=== PATIENT | female | born 1940 | race Caucasian/White ===

== ENCOUNTER 2016-08-14 09:50 | Inpatient (IN) ==
[2016-08-14] MEDS ORDERED: ASPIRIN PO STA (12:05)
[2016-08-14] MEDS ORDERED: OXY IR PO ONE (12:08)
[2016-08-14] MEDS ORDERED: NORCO-10 PO ONE (12:47)
[2016-08-14 13:03] LABS: MANUAL DIFF NEEDED? NO
[2016-08-14 13:19] LABS: BASO% 1.1 % (0.0-0.8); EOS# 0.12 X1000 (0.0-0.7); EOS% 1.6 % (0.0-10.0); HEMATOCRIT 32.1 % (37.0-47.0); IMM GRAN# 0.03 X1000 (0.0-0.04); IMM GRAN% 0.4 % (0.0-0.5); LYMPH# 1.16 X1000 (1.2-3.4); LYMPH% 15.5 % (20.5-51.1); MCH 25.3 PG (27-31); MCHC 31.2 g/dL (33-37); MCV 81.1 FL (81-99); MONO# 0.73 X1000 (0.11-0.59); MONO% 9.8 % (1.7-9.3); MPV 9.2 FL (7.4-10.4); NEUT% 71.6 % (42.2-75.2); PLT 557 X1000 (130-400); RBC 3.96 XMIL (4.2-5.4)
[2016-08-14 13:29] LABS: INR 1.1; PROTIME 11.6 Seconds (9.2-11.7); PTT 35.7 Seconds (22.0-36.0)
[2016-08-14 13:46] LABS: ALBUMIN 2.7 g/dL (3.5-5.0); CALCIUM 8.8 mg/dL (8.8-10.2); MAGNESIUM 2.1 mg/dL (1.5-2.7); POTASSIUM 3.9 mmol/L (3.5-5.1); TOTAL BILIRUBIN 0.37 mg/dL (0.20-1.00); TOTAL PROTEIN 6.3 g/dL (6.3-8.3)
[2016-08-14] MEDS ORDERED: LASIX IV ONE (14:43)
--- NOTE | 2016-08-14 14:50 | PROVIDER DOCUMENTATION ---
This chart was entered by Tamara Lui Scribe, acting as scribe for Samy Quintero MD. HPI-Musculoskeletal Pain/Inj - GENERAL Chief Complaint: Edema Stated Complaint: sent from outpatient surgery Time Seen by Provider: 08/14/16 10:27 Source: patient - HX OF PRESENT ILLNESS-MUSKULOSKELTAL Nature of Presenting Problem: Pt is a 75 yof who came to the ED with a cc of edema. R leg is swollen two times more than the left leg. Pt was endoscopy but was canceled because the condition her right leg is in. Quality of Pain: reports: cramping Onset/Duration: unsure Timing: still present Any recent injury?: No Similar Symptoms Previously?: Yes Recently seen or treated by another doctor?: Yes Review of Systems - Adult - REVIEW OF SYSTEMS - ADULT Constitutional: denies: chills, fever Eyes: reports: no symptoms reported Ears, Nose, Mouth & Throat: denies: epistaxis, mouth swelling Cardiovascular: reports: no symptoms reported Respiratory: reports: no symptoms reported Gastrointestinal: reports: no symptoms reported Genitourinary: reports: no symptoms reported Musculoskeletal: reports: see HPI, other (lower legs swollen). denies: frequent leg cramps, joint swelling Integumentary: reports: no symptoms reported Neurological: reports: no symptoms reported Psychiatric: reports: no symptoms reported Endocrine: reports: no symptoms reported Hematologic/Lymphatic: reports: no symptoms reported Allergic/Immunologic: reports: no symptoms reported All Other Systems: Reviewed and Negative Past History - Adult - PAST MEDICAL HISTORY-ADULT Review of Records: reports: Nursing Assessment Review Major Childhood Illnesses: reports: denies history Cardiovascular: reports: HTN Respiratory: reports: asthma Gastrointestinal: reports: GERD Obstetrical/Gynecological: reports: denies history Genitourinary: reports: denies history Musculoskeletal: reports: neck/back injury, chronic pain, arthritis Neurological: reports: denies history Endocrine/Immune: reports: denies history Other Conditions: reports: cataract/glaucoma - PRIOR SURGERIES/PROCEDURES Surgical/Procedure History: reports: appendectomy, cholecystectomy, hysterectomy , tonsillectomy, hernia repair, orthopedic (extremity), other - PRIOR HOSPITALIZATIONS Prior Hospitalizations: reports: for other non-related - IMMUNIZATION STATUS Childhood Immunizations: See Nurse Assessment Flu Vaccine: See Nurse Assessment - FAMILY HISTORY Family History: reviewed, not pertinent Physical Exam-Injury Related - Physical Exam-Injury Related General Appearance: appears well, alert Eyes: PERRL/EOMI, pink conjunctivae Head, Ears, Nose, Mouth & Throat: normocephalic/atraumatic, moist mucous membranes Neck: non-tender, full range of motion Respiratory: chest non-tender, lungs clear, normal breath sounds Cardiovascular: normal peripheral pulses, regular rate, rhythm Abdominal Exam: normal bowel sounds, non tender, soft Back Exam: normal inspection, no CVA tenderness Extremity: pedal edema Integumentary: normal color, warm/dry Neurologic: grossly normal Psych/Mental Status: normal mood/affect, normal thought content, normal thought process, oriented x 3 Progress - PLAN OF CARE/RESULTS Progress/Plan/Lab Results: Vital Signs - 8 hr 08/14/16 09:50 08/14/16 12:05 Temperature 97.8 F Pulse Rate 91 H 94 H Respiratory Rate 18 Blood Pressure 169/83 O2 Sat by Pulse Oximetry 100 92 L Laboratory Results - last 24 hr 08/14/16 08/14/16 08/14/16 12:35 12:35 12:35 WBC 7.48 RBC 3.96 L Hgb 10.0 L Hct 32.1 L MCV 81.1 MCH 25.3 L MCHC 31.2 L RDW Std Deviation 14.0 Plt Count 557 H MPV 9.2 Immature Gran % (Auto) 0.4 Neut % (Auto) 71.6 Lymph % (Auto) 15.5 L Door % (Auto) 9.8 H Eos % (Auto) 1.6 Baso % (Auto) 1.1 H Immature Gran # (Auto) 0.03 Neut # (Auto) 5.36 Lymph # (Auto) 1.16 L Door # (Auto) 0.73 H Eos # (Auto) 0.12 Baso # (Auto) 0.08 PT INR PTT (Actin FS) D-Dimer 1.43 H Sodium 143 Potassium 3.9 Chloride 102 Carbon Dioxide 24 L Anion Gap 17 BUN 55 H Creatinine 1.1 H Estimated GFR/1.73 m2 49 BUN/Creatinine Ratio 50 Glucose 94 Calculated Osmolality 300 Calcium 8.8 Magnesium 2.1 Total Bilirubin 0.37 AST 16 ALT 7 L Alkaline Phosphatase 134 H Creatine Kinase 24 Troponin T Pna-Y-Okbkpikytsc Pept Total Protein 6.3 Albumin 2.7 L Globulin 3.6 Albumin/Globulin Ratio 0.8 04/18/17 04/18/17 04/18/17 12:35 12:35 12:35 WBC RBC Hgb Hct MCV MCH MCHC RDW Std Deviation Plt Count MPV Immature Gran % (Auto) Neut % (Auto) Lymph % (Auto) Door % (Auto) Eos % (Auto) Baso % (Auto) Immature Gran # (Auto) Neut # (Auto) Lymph # (Auto) Door # (Auto) Eos # (Auto) Baso # (Auto) PT 11.6 INR 1.10 PTT (Actin FS) 35.7 D-Dimer Sodium Potassium Chloride Carbon Dioxide Anion Gap BUN Creatinine Estimated GFR/1.73 m2 BUN/Creatinine Ratio Glucose Calculated Osmolality Calcium Magnesium Total Bilirubin AST ALT Alkaline Phosphatase Creatine Kinase Troponin T < 0.010 Jgd-D-Rsusgorzzit Pept 600 H Total Protein Albumin Globulin Albumin/Globulin Ratio Orders Category Date Time Status Cardiac Monitoring DIRECTED Care 08/14/16 12:05 Active Elevate affected extremity DIRECTED Care 08/14/16 12:04 Active Ice Pack to affected area DIRECTED Care 08/14/16 12:04 Active Immobilize affected extremity ORDERED Care 08/14/16 12:04 Active Saline Loc NOW Care 08/14/16 12:05 Active Heart Healthy Diet Diet 08/14/16 13:45 Active BLOOD CULTURE [BLDCUL] Stat Lab 08/14/16 13:40 Results CBC WITH ELECTRONIC DIFF [HEME] Stat Lab 08/14/16 12:35 Completed CK PROFILE [SP CHEM] Stat Lab 08/14/16 12:35 Completed COMPREHENSIVE METABOLIC PANEL [CHEM] Stat Lab 08/14/16 12:35 Completed D-DIMER [CHEM] Stat Lab 08/14/16 12:35 Completed MAGNESIUM [CHEM] Stat Lab 08/14/16 12:35 Completed PRO B-NATRIURETIC PEPTIDE Stat Lab 08/14/16 12:35 Completed PROTIME WITH INR [COAG] Stat Lab 08/14/16 12:35 Completed PTT [COAG] Stat Lab 08/14/16 12:35 Completed TROPONIN T Stat Lab 08/14/16 12:35 Completed Aspirin Med 08/14/16 12:05 Discontinued 325 mg PO STAT STA Furosemide [Lasix] Med 08/14/16 14:43 Discontinued 80 mg IV NOW ONE Hydrocodone/APAP 10 mg/325 mg [[place]-10] Med 08/14/16 12:47 Discontinued 1 each PO NOW ONE Oxycodone I.r. [Oxy Ir] Med 08/14/16 12:08 Discontinued 5 mg PO NOW ONE EKG [EKG] Stat Ther 08/14/16 12:05 Ordered US [Venous U/S Left Leg] Stat Ther 08/14/16 12:06 Completed Result Diagrams: 08/14/16 12:35 08/14/16 12:35 - REASSESSMENT Reassessment #1 Time Reassessed: 14:44 Reassessment Comment: labs unremarkable. u/s unremarkable. no evidence of systemic infection Departure - Departure Time of Disposition Decision: 14:45 DIAGNOSIS: Cellulitis, Lymphedema of both lower extremities Disposition: HOME 01 Certified Medical Emergency: Emergent Condition: Stable Prescriptions: Sulfamethoxazole/Trimethoprim [Bactrim Ds Tablet] 1 each PO BID #14 tablet Referrals and Follow-Ups: Jeannine Curran MD [Primary Care Provider] - Attestation - Physician/ HERMES Attestation Patient care was provided by Advanced Practice Provider:: Yes Advanced Practice Provider documentation review:: The Mid-level provider documentation, treatment plan and medical decision making was reviewed by the physician who agrees with all treatment and medical decision making by the MLP. The physician spent face to face time with patient:: Yes Advanced Practice Provider documentation review:: The physician spent face to face time with this patient and agrees with all P documentation, treatment, and medical decision making by the MLP. See provider notes for further information. This chart was documented by the indicated scribe, (Tamara Lui Scribe) and accurately reflects the services I performed and decisions made by , Samy Quintero MD, as attested by the provider's signature.
[2016-08-14] MEDS ORDERED: SEPTRA DS PO ONE (14:51)
[2016-08-14 18:05] LABS: ALBUMIN 2.7 g/dL (3.5-5.0); CALCIUM 8.6 mg/dL (8.8-10.2); POTASSIUM 3.9 mmol/L (3.5-5.1); TOTAL BILIRUBIN 0.27 mg/dL (0.20-1.00); TOTAL PROTEIN 6.2 g/dL (6.3-8.3)
[2016-08-14] MEDS ORDERED: NS 1,000 ML IV ONE (18:27)
[2016-08-14] MEDS ORDERED: VANCOMYCIN IV PER PHARMACY MISC SCH (18:30)
[2016-08-14 18:48] LABS: RETIC% 0.69 % (0.8-2.1); RETIC-HE 27.8 PG (28.2-36.6)
[2016-08-14 18:52] LABS: ALLEN TEST YES; BE 4.2 mmoll (-3.0-3.0); BLOOD TYPE ARTERIAL; DRAW SITE R RADIAL; METHB 1.6 % (0.0-1.5); MODALITY CANNULA; O2(CT) 13.7 mL/dL (15.0-23.0); PCO2(98.6) 45 mmHg (35-45); PO2(98.6) 99 mmHg (60-100); SAMPLE BLOOD; SAO2 99.2 % (95.0-100.0); pH(98.6) 7.42 (7.35-7.45)
[2016-08-14] MEDS ORDERED: MERREM 500 MG in NS 50 ML IV ONE (19:00)
[2016-08-14 19:08] LABS: HEMOGLOBIN A1C 5.3 % (4.8-6.0)
[2016-08-14 19:13] LABS: URINE MICRO REVIEW NEEDED? NO; URINE SOURCE CATH
[2016-08-14 19:17] LABS: BILIRUBIN URINE NEGATIVE (NEGATIVE); BLOOD URINE NEGATIVE (NEGATIVE); COLOR STRAW; GLUCOSE URINE NEGATIVE (NEGATIVE); LEUKOCYTES URINE NEGATIVE (NEGATIVE); NITRITE URINE NEGATIVE (NEGATIVE); PROTEIN URINE NEGATIVE (NEGATIVE); SP GRAVITY URINE 1.006; TURBIDITY URINE CLEAR (CLEAR); UR EPITHELIAL CELLS <10 /HPF (<10); URINE BACTERIA NEGATIVE /HPF; URINE RBC <10 /HPF (<10); URINE WBC <10 /HPF (<10); UROBILINOGEN URINE NORMAL (NORMAL)
[2016-08-14 19:30] LABS: UR CREAT RANDOM 10.1 mg/dL (11-20); UR PROT RANDOM < 4.0 mg/dL; UR SODIUM 122 mmoll; UR UREA NITROGEN RANDOM 201 mg/dL
[2016-08-14] MEDS: DUONEB (A & A) INH SCH ×2 (19:30→23:30)
[2016-08-14] MEDS ORDERED: NORCO-5 PO PRN (20:52)
[2016-08-14] MEDS ORDERED: ASPIRIN EC PO ONE (20:54)
[2016-08-14] MEDS ORDERED: VANCOMYCIN 1.2 GM in NS 250 ML IV ONE (21:00)
[2016-08-14 21:05] LABS: FREE T4 1.33 ng/dL (0.93-1.70)
--- NOTE | 2016-08-14 21:33 | HISTORY AND PHYSICAL ---
PRIMARY CARE PHYSICIAN: Jeannine Curran MD. SHADING PAINTER: Oksana Osborn MD CHIEF COMPLAINT: "My left leg is a swollen and red and it hurts." HISTORY OF PRESENT ILLNESS: Ms. Dhaliwal is a 75-year-old female with a history of multiple medical problems, including hypertension, nephrolithiasis, restless legs syndrome, and dysphagia who was sent to the ER due to swelling in her left lower extremity and concern for cellulitis. The patient was scheduled to undergo outpatient endoscopy; however, prior to the procedure during the preop the patient's the patient was noted to have a erythema, swelling and pain involving her left lower extremity. The patient reports that for the last 2 weeks she has noticed that her left leg has been swelling more than normal. The patient has had multiple surgeries on the left leg and has chronic lymphedema; however, she states that the length felt warm and she has been having fever and chills for the last week or so. She also reports feeling very tired and a poor appetite. The patient also reports having difficulty with swallowing. The patient did have a modified barium swallow done on August 02 that revealed an upper esophageal web as well as esophagogastric achalasia. The patient was scheduled to undergo an EGD with possible dilation. In the ER, it was noted that the patient's BUN and creatinine were elevated at 55 and 1.1 respectively. The patient was also noted to be dehydrated. The patient reports that she can barely stand due to the pain in her left leg. A left lower extremity venous Doppler was done and the preliminary report was negative for DVT. The patient reports that her last bowel movement was yesterday. The patient states that she is not on home oxygen. PAST MEDICAL HISTORY: 1. Colonic polyps. 2. Large hiatal hernia. 3. Restless legs syndrome. 4. Nephrolithiasis. 5. GERD. 6. Esophageal web. 7. Asthma. 8. Fibromyalgia. 9. Hypertension. 10. Migraines. 11. Depression. 12. Morbid obesity. 13. Chronic left lower extremity lymphedema. PAST SURGICAL HISTORY: 1. Left wrist surgery for carpal tunnel syndrome. 2. Appendectomy. 3. Cholecystectomy. 4. Polypectomy. 5. Peter-en-Y gastric bypass in 2003. 6. Hysterectomy. 7. Hip replacement. 8. Knee replacement. 9. Vein stripping. FAMILY HISTORY: Noncontributory due to age. SOCIAL HISTORY: The patient is a . She denies any tobacco, alcohol or illicit drug use. ALLERGIES: 1. Cefazolin. 2. Clindamycin. 3. Indomethacin. 4. Clonidine. 5. Penicillin. 6. Adhesive tape. HOME MEDICATIONS: 1. Ambien 10 mg p.o. at bedtime. 2. Carafate 1 g p.o. 4 times a day. 3. Mirapex 0.25 mg p.o. at bedtime. 4. Klor-Con 20 mEq oral daily. 5. Protonix 40 mg p.o. daily. 6. Multivitamin 1 tab oral daily. 7. Minocycline 100 mg p.o. twice a day. 8. Ativan 1 tab oral daily p.r.n. 9. Lasix 20 mg p.o. daily p.r.n. 10. Diflucan 100 mg p.o. daily. 11. Cymbalta 80 mg p.o. twice a day. 12. Cardizem CD 180 mg p.o. at bedtime. 13. Bentyl 10 mg p.o. 4 times a day. 14. Clonidine 0.1 mg p.o. twice a day. 15. Celebrex 200 mg p.o. at bedtime. 16. Coreg 6.25 mg oral b.i.d. 17. Calcium 600 mg p.o. daily. 18. Biotin 5000 mcg oral daily. REVIEW OF SYSTEMS: All other review of systems are negative. Please refer to the history of present illness for pertinent positives and negatives. PHYSICAL EXAMINATION: VITAL SIGNS: Temperature 97.8 degrees, blood pressure 134/74, heart rate 91, respirations 16, O2 saturations 100% on 2 L nasal cannula. GENERAL: This is a chronically ill morbidly obese female, lying on the stretcher in no acute distress. SKIN: Poor skin turgor. Positive for erythema involving the left lower extremity. No rash. HEENT: Head normocephalic, atraumatic. Eyes, conjunctivae clear, EOMI, PERRLA. NECK: Supple no JVD. No lymphadenopathy. LUNGS: Clear to auscultation bilaterally. No crackles. No wheezing. No rales. HEART: S1, S2. Normal. Regular rate and rhythm. ABDOMEN: Positive bowel sounds. Soft, nontender, nondistended. EXTREMITIES: 2+ edema involving the left lower extremity with erythema on the henson. No edema in the right extremity. NEUROLOGIC: The patient is alert oriented x3. However, she is sleepy. She is able to move all 4 extremities. No focal neurologic deficits noted. LABORATORY: Sodium 143, potassium 3.9, chloride 102, CO2 24, BUN 55, creatinine 1.2, glucose 94. AST 16, ALT 7, alkaline phosphatase 134, CK 25, proBNP 600, albumin 2.7. Total protein 6.3. Ferritin 596, folate 18.2, vitamin D 32.4. White blood cell count 7.4, hemoglobin 10, hematocrit 32, platelets 557,000, reticulocyte 0.69. IMAGING: CT of the head without contrast reveals a possible subacute lacunar infarct. ASSESSMENT AND PLAN: 1. Chronic left knee infection with cellulitis. Blood cultures have been ordered. We will also start the patient on broad-spectrum antibiotic therapy and keep the left lower extremity elevated. A preliminary report of the venous Doppler for the left lower extremity is negative for deep venous thrombosis. 2. Dehydration. We will start the patient on IV fluid hydration and monitor the patient's intake and output closely. 3. Acute kidney injury. We will hold all nephrotoxic agents. We will also check urine electrolytes. The patient will be started on IV fluid hydration. The patient's urine output will be monitored closely. 4. Possible subacute infarct. We will order magnetic resonance imaging of the brain to be done tomorrow. We will order neurologic checks and check a lipid profile. We will also give the patient a dose of aspirin now. 5. Dysphagia. We will consult Gastroenterology for further recommendations. 6. Restless legs syndrome. Continue on Mirapex. 7. Hypertension. Controlled. Continue on Coreg. 8. Nephrolithiasis. Aware. This appears to be stable on the computed tomography. 9. Morbid obesity. Aware. 10. Fibromyalgia. Continue on the p.r.n. [place]. 11. Gastrointestinal prophylaxis. We will start the patient on IV Protonix. 12. Deep vein thrombosis prophylaxis. The patient has been started on Lovenox. cc: Allyson Lim MD MTDD
[2016-08-14] MEDS: NORCO-10 PO PRN (22:55)
[2016-08-14] MEDS: BENTYL PO SCH (22:55)
[2016-08-14] MEDS: COREG PO SCH (22:55)
[2016-08-14] MEDS: CARDIZEM CD PO SCH (22:55)
[2016-08-14] MEDS: CARAFATE PO SCH (22:56)
--- NOTE | 2016-08-15 00:36 | CONSULTATION ---
DATE OF CONSULTATION: 08/14/2016 PRIMARY CARE PHYSICIAN: Dr. Jeannine Curran M.D. HOSPITALIST: Dr. Allyson Lim M.D. INDICATION FOR CONSULTATION: 1. Dysphagia. 2. Anemia. 3. Abdominal pain. HISTORY OF PRESENT ILLNESS: The patient is a 75-year-old white female, who has been followed in our clinic for the last 2 years. She has a history of nausea with vomiting, pyrosis, dysphagia, reflux, epigastric pain, and constipation. In 2015, she underwent an EGD that was remarkable for active reflux. She has a history of obesity, and has undergone a Peter-en-Y gastric bypass. She lost weight and was weight stable for 9 years. Beginning in 2013, she began experiencing weight regain to her preoperative weight. She states that she has had the of both of her children and her in the last 10 years, and has been struggling with depression. In the last year, she underwent an EGD that was remarkable for gastritis in the pouch, as well as , a tortuous esophagus. On colonoscopy, she was found to have multiple polyps. Because of her ongoing reflux, the patient elected to undergo surgical revision in [place]. Postoperatively , she has done poorly. She presented to our office recently for re-evaluation. She was found to have weight loss, anemia, fatigue and failure to thrive. Because of her abdominal pain, we obtained a swallow study that revealed cricopharyngeal achalasia, and moderate esophagogastric achalasia. She also had presbyesophagus, a tight upper esophageal sphincter, and episodic spasm in the body of the esophagus. There was no evidence of aspiration. She presented to endoscopy today, but was noted to be fatigued, and appeared very pale. She also complained of left leg pain, and was noted to have a warm left knee over her surgical incision for her left knee replacement, as well as, cellulitis in the lower extremity. Her left leg was more than double the size of her right leg, which she states has been new in the last 2 to 3 months. Because of the lower extremity cellulitis and her dysphagia, the patient has not been eating. On our scale, she has lost between 30 and 40 pounds over the last year. She is admitted for further management. PAST MEDICAL HISTORY: 1. Asthma. 2. Fibromyalgia. 3. Glaucoma. 4. Hypertension. 5. Kidney stones. 6. Migraines. 7. Psoriasis. 8. Depression. 9. Morbid obesity. 10. Large hiatal hernia, status post Kizzy redo post gastric bypass. 11. Nephrolithiasis. 12. History of granulomatous disease, based on CT scan. 13. Gallstones, status post cholecystectomy. 14. Fatty liver. 15. Hypertension. PAST SURGICAL HISTORY: 1. Kizzy redo due to the large hiatal hernia found in 2015. 2. Vein stripping. 3. Left wrist surgery for carpal tunnel syndrome. 4. Appendectomy. 5. Foot surgery. 6. Cholecystectomy. 7. Peter-en-Y gastric bypass in 2003. 8. Hysterectomy. 9. Joint replacement, including hip and knee replacement. 10. Prior Kizzy fundoplication prior to her bariatric surgery. MEDICATION ALLERGIES: 1. Cefazolin. 2. Clindamycin. 3. Clonidine. 4. Indomethacin. 5. Remicade. 6. Penicillins. 7. Adhesive tapes. HOME MEDICATIONS: 1. Ambien. 2. Bactrim. 3. Carafate. 4. Mirapex. 5. Klor-Con. 6. Protonix. 7. Centrum. 8. Minocycline. 9. Urolab MB. 10. Ativan. 11. Xalatan ophthalmic solution. 12. Lasix. 13. Fluconazole. 14. Cymbalta. 15. Cardizem CD. 16. Bentyl. 17. . 18. Catapres. 19. Celebrex. 20. Carvedilol. 21. Calcium. 22. Biotin. FAMILY HISTORY: Remarkable for esophageal cancer. There is no family history of colon cancer. SOCIAL HISTORY: Negative for alcohol, tobacco or recreational drug use. She is a , and both of her children are . REVIEW OF SYSTEMS: Remarkable for diffuse body aches particularly with left leg pain. In addition, she reports fatigue, weakness and pain when she attempts to ambulate. She notes loss of appetite, difficulty swallowing her food, epigastric pain, when she is able to eat, and nausea. She denies vomiting. PHYSICAL EXAMINATION: General: On exam, she is extremely pale and appears liang in color. She appears older than her stated age, and has lost considerable weight since her last clinic visit. vital signs: On exam, her blood pressure is 152/67, pulse of 121, respirations 20, temp of 98.3. Her oxygen saturation is 92 to 100% on room air to 2 L. HEENT: Negative for jaundice. Her conjunctivae are normal. Her oropharyngeal mucosa membranes are dry. Her tongue is glossy suggestive of either iron deficiency or B12 deficiency. Neck: Supple. Pulmonary: Lungs are clear anteriorly. Cardiovascular: She has a tachycardia with a regular rhythm. Abdominal: Reveals diffuse abdominal tenderness that is greatest in the epigastrium. There is no rebound or guarding. Extremities: Bilaterally are remarkable for stasis dermatitis. There is 2+ edema in the right leg, with 4+ edema in the left leg. There is rubor and erythema over the left lower extremity consistent with cellulitis. OBJECTIVE DATA: Remarkable for hemoglobin of 10.0, with hematocrit of 32.1, and a white count of 7.48. She has 557,000 platelets. Her PT is 11.6, with an INR of 1.10, and a PTT of 35.7. Her D- dimer is 1.43. Her blood gas on 3 L nasal cannula is 7.42, with a PC O2 of 45 and PO2 of 99. Sodium is 143, potassium 3.9, chloride 102, CO2 of 25, BUN of 52, with a creatinine of 1.2, which is an interval change from this morning where her BUN was 55 and creatinine was 1.1. Her glucose is 116. Her hemoglobin A1c is 5.3. Her calcium is 8.6, with a total bilirubin 0.27, AST 14, ALT is 7, alkaline phosphatase 129, magnesium 2.1, CK of 24, total protein 6.2, and albumin 2.7. Her iron level is pending. Her ferritin is 596. Her CRP is 64.97. Her ammonia is 27, with a troponin of less than 0.010. Her BNP is 600. Her vitamin B12 is greater than 2000, with a folate of 18.2 and a vitamin D 25 hydroxy of 32.4. Her TSH is 0.94, and her urinalysis is negative for infection. IMPRESSION: 1. Dysphagia, secondary to cricopharyngeal achalasia and possibly lower esophageal achalasia. 2. Anemia. 3. Acute renal failure. 4. Volume depletion. 5. Weight loss. 6. Lower extremity cellulitis. RECOMMENDATION: 1. Begin Protonix 40 mg IV q.12 hours. 2. Begin Carafate 1 g 4 times a day. 3. She will need aggressive treatment of the cellulitis with correction of her volume depleted state. 4. Once she is clinically more stable, we will plan to perform an EGD with dilation. 5. Although the patient is on Bentyl, she is 75 years of age. We have had multiple discussions about the importance of discontinuing it based on the fact that is on the BEERS list. The patient has been extremely reluctant to stop using it as she has severe abdominal spasms when she stops taking it. 6. We await her post gastric bypass labs. 7. Additional recommendations to follow based on her clinical course. cc: MD Allyson Bowden MD MTDD
[2016-08-15] MEDS: DUONEB (A & A) INH SCH ×6 (03:05→23:05)
[2016-08-15] MEDS: NORCO-10 PO PRN ×3 (03:29→21:04)
[2016-08-15] MEDS: MERREM 500 MG in NS 50 ML IV SCH ×3 (03:29→21:10)
[2016-08-15] MEDS: XALATAN 0.005% OPH SOLN BOTH EYES SCH ×2 (04:14→21:04)
[2016-08-15] MEDS: NS 1,000 ML IV SCH ×3 (06:02→16:26)
--- NOTE | 2016-08-15 06:44 | Diag Imaging Result Document ---
PROCEDURE NAME: HEAD W/O CONTRAST - 08/14/2016 CT BRAIN WITHOUT CONTRAST: TECHNIQUE: Dose-reduction protocol. COMPARISON: Compared to 06/01/2013. FINDINGS: No parenchymal hemorrhage. No epidural or subdural hematoma. No subarachnoid hemorrhage. No mass identified on this noncontrasted exam. No hydrocephalus. Mild chronic microvascular ischemic changes. Questionable old right lacune not present on the prior exam. No sinus opacification. Prominent mucosal thickening in the left maxillary sinus. IMPRESSION: 1. No hemorrhage. 2. Chromic microvascular ischemic changes with a questionable tiny old right lacune. 3. Left maxillary sinusitis. A preliminary report was given at 7:38 p.m.
[2016-08-15 07:54] LABS: BASO% 0.4 % (0.0-0.8); EOS# 0.05 X1000 (0.0-0.7); EOS% 0.3 % (0.0-10.0); HEMOGLOBIN 10.4 g/dL (12.0-16.0); IMM GRAN# 0.06 X1000 (0.0-0.04); IMM GRAN% 0.3 % (0.0-0.5); LYMPH# 0.87 X1000 (1.2-3.4); LYMPH% 4.6 % (20.5-51.1); MANUAL DIFF NEEDED? YES; MCH 25.7 PG (27-31); MCHC 31.5 g/dL (33-37); MCV 81.7 FL (81-99); MONO# 0.84 X1000 (0.11-0.59); MONO% 4.5 % (1.7-9.3); MPV 9.1 FL (7.4-10.4); NEUT% 89.9 % (42.2-75.2); PLT 580 X1000 (130-400); RBC 4.04 XMIL (4.2-5.4)
[2016-08-15 08:04] LABS: AGAP 15; ALBUMIN 2.5 g/dL (3.5-5.0); BUN 47 mg/dL (8-22); CALCIUM 8.4 mg/dL (8.8-10.2); CHLORIDE 102 mmol/L (98-107); COSMO 297; HDL 25 mg/dL (45-65); LDL 40 mg/dL; POTASSIUM 3.1 mmol/L (3.5-5.1); SODIUM 143 mmol/L (136-145); TCO2 26 mmol/L (25-35); TRIGLYCERIDES 87 mg/dL (35-135); VLDL 17 mg/dL
[2016-08-15] MEDS ORDERED: KLOR-CON PO ONE (08:04)
[2016-08-15 08:17] LABS: BANDS 4 % (0-1); LYMPHS 6 % (21-51); MONO 2 % (1-9)
[2016-08-15 08:18] LABS: HYPOCHROM 2+
[2016-08-15] MEDS: LOVENOX SUBQ SCH ×2 (08:31→08:57)
[2016-08-15] MEDS: COREG PO SCH ×2 (08:32→21:03)
[2016-08-15] MEDS: PROTONIX IV SCH ×2 (08:32→21:03)
[2016-08-15] MEDS: CARAFATE PO SCH ×4 (08:32→21:03)
[2016-08-15] MEDS: BENTYL PO SCH ×4 (08:32→21:03)
[2016-08-15] MEDS: SODIUM CHLORIDE 0.9% INJ SCH (08:32)
[2016-08-15] MEDS: PATIENT'S OWN MED PO SCH (08:44)
--- NOTE | 2016-08-15 08:50 | Diag Imaging Result Document ---
PROCEDURE NAME: THORAX/ABDOMEN/PELVIS W/O CONT - 08/14/2016 CT THORAX, ABDOMEN, AND PELVIS.: No contrast administered per request of the referring provider. A dose-reduction protocol was used. COMPARISON: Compared with the CT thorax and abdomen of 09/16/2015. FINDINGS: There are postsurgical changes of interval hiatal hernia repair. There is subsegmental atelectasis or scarring at the left lung base. There is some bilateral dependent atelectasis. The lungs, otherwise, appear essentially clear. There is no consolidation, pleural effusion, or pneumothorax identified. There are a few calcified granulomas and calcified lymph nodes from old granulomatous disease. There are no substantially enlarged noncalcified mediastinal lymph nodes identified. There are no acute abnormalities of the liver, spleen, adrenal glands, or pancreas identified. The pancreas is somewhat atrophic. The gallbladder is surgically absent. There is some prominence of the common bile duct similar to the previous exam, which likely relates to the postcholecystectomy state. There is no calcified common duct stone identified. There are nonobstructing stones in the left kidney. There is no hydronephrosis identified. There is a 3.3 cm left renal cyst. There is a Blum catheter in the urinary bladder. There are postsurgical changes at the stomach. There is no evidence of bowel obstruction. There is no bowel containing external or internal hernia identified. There is barium in the left colon and rectum, presumably from the 08/02/2016 modified barium swallow. There is colonic diverticulosis which is most extensive at the sigmoid. There is no diverticulitis identified. There is no substantial bowel wall thickening identified. There is a moderate amount of retained fecal debris in the colon proximal to the descending colon. There is no abscess identified. There is no free air or free fluid identified. Images of the pelvis, otherwise, show streak artifacts from metallic left hip prosthesis which limit detail. There has been previous hysterectomy. There are lumbar scoliosis and degenerative disease noted. IMPRESSION: 1. Postsurgical changes of interval hiatal hernia repair. Mild subsegmental atelectasis or scarring at left lung base. No other evidence of acute disease in the thorax. 2. Retained barium in the left colon and a moderate amount of retained fecal debris in the right colon, suggesting constipation. Uncomplicated colonic diverticulosis, primarily at the sigmoid. 3. Nonobstructing stones in left kidney. 4. No other evidence of acute disease in the abdomen or pelvis. The on-call radiologist provided preliminary results at 7:53 p.m. on 08/14/2016.
[2016-08-15] MEDS: ATIVAN PO PRN (10:50)
--- NOTE | 2016-08-15 10:56 | Diag Imaging Result Document ---
PROCEDURE NAME: MRI BRAIN W/O CONTRAST - 08/15/2016 MRI BRAIN WITHOUT CONTRAST: No contrast administered per request of the referring provider. COMPARISON: 01/11/2015. FINDINGS: There is no evidence of hemorrhage, mass effect, or midline shift. The diffusion- weighted images show a 0.5 cm area of apparent restricted diffusion at the lateral right cerebellum which is suspicious for tiny acute infarct. The diffusion-weighted images show no other areas of restricted diffusion (no other acute infarct). There are no other substantial signal abnormalities identified. There is a dilated perivascular space inferior to the left basal ganglia which is likely of no clinical significance. IMPRESSION: Apparent 0.5 cm acute infarct at lateral right cerebellum. No other visible significant abnormality. MTDD
--- NOTE | 2016-08-15 11:46 | CONSULTATION ---
DATE OF CONSULTATION: 08/15/2016 CHIEF COMPLAINT: Left leg swelling and cellulitis. HISTORY OF PRESENT ILLNESS: Latonia Dhaliwal is a 75-year-old female who was admitted for left leg cellulitis and I was asked to see her in orthopaedic consultation by Dr. Osborn. She states that she has had a longstanding infection in this left leg. She has had multiple surgeries to her left hip and left knee. She has been dismissed from her orthopaedic surgeons in [place] and told that the only thing left to do was an amputation of her left leg to clear the infection. She has refused that apparently thus far. PHYSICAL EXAMINATION: GENERAL: She is a well developed female who is alert and cooperative with the exam. LEFT LOWER EXTREMITY: Examination of her leg does reveal that it is quite swollen and red. She has pain with range of motion of her knee. She has an effusion in her knee as well. PAST MEDICAL HISTORY: See admission History and Physical and Dr. Osborn's consult. PAST SURGICAL HISTORY: See admission History and Physical and Dr. Osborn's consult. MEDICATIONS: See admission History and Physical and Dr. Osborn's consult. ALLERGIES: See admission History and Physical and Dr. Osborn's consult. 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 PLAN: I agree with Dr. Lin that the only option really is amputation. General surgeons do the amputations here, however I do not know if she would agree to that. I think that if she does not agree to the amputation by the general surgeons then she should probably be referred back to her treating physicians in [place] as they are more familiar with her care and would know exactly what needs to be done. I have nothing further to add for her care at this time. cc: Denilson Oscar MD
--- NOTE | 2016-08-15 13:05 | PROGRESS NOTE ---
DATE: 08/15/2016 SUBJECTIVE: The patient states that she feels a lot better today. She is more awake and alert. OBJECTIVE: Vital Signs: Temperature 98.4 degrees, blood pressure 116/42, heart rate 75, respirations 20, O2 saturations 99% on room air. General: This is an elderly chronically ill- appearing 72 female lying in bed, in no acute distress. Head: Normocephalic, atraumatic. Heart: S1, S2. Normal. Regular rate and rhythm. Lungs: Clear to auscultation bilaterally. No wheezes, no rales. No rhonchi. Abdomen: Positive bowel sounds. Soft, nontender, nondistended. Extremities: Lymphedema involving the left lower extremity with overlying cellulitis. Neurologic: The patient is alert and oriented x3. LABS: Creatinine 1.2, BUN 47, potassium 3.1. White blood cell count 18. ASSESSMENT AND PLAN: 1. Chronic left knee infection with cellulitis. We will continue on broad- spectrum antibiotic therapy. Blood cultures have been ordered. We will also consult ID for further treatment recommendations. The patient has been seen by the Orthopedic surgeon and amputation was recommended. We will follow closely. 2. Acute CVA. We will start the patient on aspirin and Pravachol. Will also consult physical therapy and occupational therapy. 3. Dysphagia. GI is following. Continue on Protonix. 4. Morbid obesity. Aware. 5. Hypokalemia. Will replace the patient's potassium. 6. Hypertension. Controlled. 7. Fibromyalgia. Continue on p.r.n. [place]. 8. Anxiety disorder. Continue on p.r.n. Ativan. 9. Leukocytosis. Continue on IV antibiotic therapy. 10. Acute kidney injury. Continue on IVF hydration. cc: Allyson Lim MD [facility]
--- NOTE | 2016-08-15 13:16 | CONSULTATION ---
DATE OF CONSULTATION: 08/15/2016 CONCLUSION: The patient has a chronically infected left knee. She has developed cellulitis distal to the knee. The patient appears to have oral candidiasis. RECOMMENDATIONS: I agree with decision to treat the patient with vancomycin and meropenem. I have started the patient on nystatin swish and swallow q.i.d. DISCUSSION: The patient has in the past 4 years developed a diffuse black rash involving her legs and arms. She has had multiple infections in her left total knee arthroplasty and it remains swollen and painful for her. In the past 2-3 days ago she had increasing in the pain in the lower part of the left leg and it became erythematous. LABORATORY STUDIES: The patient's laboratory studies thus far CBC shows a white count of 18,730, hemoglobin 10.4, and platelet count 580,000. Creatinine is 1.2. GFR is 44. Liver function studies are normal except for an alkaline phosphatase of 129. Urine culture is negative. Blood culture is pending. OB-OPERATIONS RESEARCH DIRECTOR: 4, para 2, abortus 2. Patient had hysterectomy. PREVIOUS HOSPITALIZATIONS AND OPERATIONS: She has had bilateral total knee arthroplasties and then multiples surgeries on her left knee because of infection. She has had a left total hip arthroplasty. She had surgery for a hiatal hernia and also removal of a lesion on her tongue. MEDICAL DISEASES: Positive for hypertension and osteoarthritis. INFECTIOUS DISEASE HISTORY: Positive for septic left knee arthritis. Also positive for UTI. The patient states that in intertriginous parts of her body she develops an erythematous rash which the patient attributes to a yeast. I think she is probably right in doing that. FAMILY HISTORY: Positive for hypertension, myocardial infarction, stroke, and cancer. SOCIAL HISTORY: [place] She does not drink or smoke. The patient is . She has a dog as a pet. She goes from place to place in a wheelchair. She is unable to walk because of the problem in her knee and also there is a hip that is fractured. ALLERGIES: She has an allergy to penicillin, manifested by angioedema. This happened about 50 years ago. The patient told me that she is allergic to penicillin but not to Keflex. PHYSICAL EXAMINATION: Vital Signs: Temperature is 98.4 degrees, pulse 84, respirations 14, blood pressure 116/42. Patient's weight is listed as 174 pounds. General: This is an obese, elderly female. She is in no acute distress at this time. Head, eyes, ears, nose, and throat: She has hyperemia to her mucosa in the mouth. She can hear my spoken words and see near objects. Neck: No meningismus. Lungs: Clear to auscultation. Cardiovascular: Regular heart rate with diminished peripheral pulses. Abdomen: Soft and nontender. Integument: Patient has a diffuse black rash involving her legs and arms. Bones, joints, muscles: The left leg is more swollen than the right. It is erythematous from the knee to the ankle. Neurologic: Patient is awake. She can move her extremities except for the left leg but she can actually move it at the ankle and foot but she cannot at the hip because she has a fracture there and it is very painful. Extremities: The left leg is larger than the right. Distally it has erythema on it which the right leg does not. Both legs have a diffuse black rash of the skin. Thank you for the consult. cc: Tal Martinez MD MTDD
[2016-08-15] MEDS: MYCOSTATIN SUSP PO SCH ×3 (14:33→21:04)
[2016-08-15] MEDS: ASPIRIN EC PO SCH (14:33)
--- NOTE | 2016-08-15 15:18 | Diag Imaging Result Document ---
PROCEDURE NAME: CHEST-PORTABLE - 08/15/2016 PORTABLE CHEST: COMPARISON: Compared to 02/03/2013. FINDINGS: There is a right subclavian [id number]-G-Iosnjocb. The tip overlies the mid superior vena cava. No pneumothorax. The heart is not enlarged. The vessels are not distended. No pneumonia. No pleural effusions identified. IMPRESSION: Right subclavian line in good position with no postprocedural pneumothorax.
--- NOTE | 2016-08-15 15:47 | EKG Report ---
Test Performed on : 08/15/2016 1:17:31 PM Test Reason : tachycardia Blood Pressure : / mmHG Vent. Rate : 094 BPM Atrial Rate : 094 BPM P-R Int : 182 ms QRS Dur : 070 ms QT Int : 362 ms P-R-T Axes : 025 -09 031 degrees QTc Int : 452 ms Normal sinus rhythm. Inferior infarct unchanged Abnormal ECG When compared with ECG of 15-JUN-2016 17:02, QRS duration has decreased Nonspecific T wave abnormality, improved in Anterior leads Loose lead artifact V1 Confirmed by Effie ROQUE, Kimo Michaels ([id number]) on 08/16/2016 6:30:16 PM
--- NOTE | 2016-08-15 19:24 | Carotid Study ---
DATE: 08/15/2016 PROCEDURE: Bilateral duplex and color flow imaging of the carotid arteries performed using a [employer] Vivid E9 ultrasound system with a 9L-D transducer. REFERRING PHYSICIAN: Allyson Lim MD INTERPRETING PHYSICIAN: TITO: Angy Mesa RVT INDICATIONS: Carotid stenosis, ICD10 165.29. OBSERVED DATA RIGHT LEFT Brachial Blood Pressure Carotid Pulse Bruits: Carotid/Sub DIAGRAM OF ULTRASOUND IMAGING R L RIGHT INT EXT INT EXT LEFT Ramses (cm/s) Ramses (cm/s) Subclavian 157/0 Subclavian 128/0 CCA Proximal 116/14 CCA Proximal 97/13 CCA Distal 88/16 CCA Distal 81/13 Bulb 97/15 Bulb 82/13 ICA Proximal 106/20 ICA Proximal 63/13 ICA Mid 76/19 ICA Mid 77/18 ICA Distal 109/21 ICA Distal 96/21 ECA 100/10 ECA 118/9 Vertebral Forward flow, 47/4 Vertebral Forward flow, 69/17 ICA/CCA Ratio 0.93 ICA/CCA Ratio 0.99 % Stenosis 0-39 % Stenosis 0-39 PHYSICIAN INTERPRETATION: Mild atherosclerotic disease of the distal common and internal carotid arteries bilaterally without evidence of a hemodynamically significant lesion in either carotid system. bilaterally. cc: MD Allyson Bello MD
--- NOTE | 2016-08-15 20:20 | OPERATIVE NOTE ---
PROCEDURE DATE: 08/15/2016 PREOPERATIVE DIAGNOSES: 1. Volume depletion. 2. Swelling of the lower extremities. 3. Need for IV access. POSTOPERATIVE DIAGNOSES: 1. Volume depletion. 2. Swelling of the lower extremities. 3. Need for IV access. PRINCIPAL PROCEDURE: Right subclavian central venous line using ultrasound guidance. SURGEON: Chyna Isaac MD. ANESTHESIA: Local. ESTIMATED BLOOD LOSS: 10 mL. DRAINS: None. INDICATIONS: Ms. Latonia Eason is a 75-year-old white female who was admitted to [facility] on 08/14/2016 with lower extremity pain and swelling, especially left lower extremity. She also had dehydration, acute kidney injury. She has poor peripheral veins and needed IV access and we were asked to place a central line. DETAILS OF OPERATION: In her bed in her room, [address], we place this central venous line. Her right neck, shoulder, and anterior chest were prepped and draped within the sterile field. We used local anesthetic for anesthesia. We initially tried a right internal jugular vein access using ultrasound, but we were unsuccessful in being able to thread the guidewire, so we went to the right subclavian vein and using an 18-gauge needle we accessed the right subclavian vein, and through the needle we placed a guidewire into the right side of the heart. We removed the needle off the guidewire and then placed a dilator over the guidewire into the subclavian vein. We then placed an antibiotic coated triple-lumen central venous line over the guidewire into the superior vena cava. All 3 ports were functioning and were flushed with saline. The catheter was secured to the skin with two 3-0 silk stitches followed by a dressing. She tolerated the procedure well. We will get a postprocedure portable chest x-ray, and then plan to use a central venous line for IV access. She tolerated the procedure well. cc: Chyna Isaac MD
[2016-08-15] MEDS: AMBIEN PO PRN (21:03)
[2016-08-15] MEDS: PRAVACHOL PO SCH (21:03)
[2016-08-15] MEDS: CARDIZEM CD PO SCH (21:03)
--- NOTE | 2016-08-15 21:49 | CONSULTATION ---
DATE OF CONSULTATION: 08/15/2016 HISTORY OF PRESENT ILLNESS: Ms. Latonia Eason is a 75-year-old white female patient of Jeannine Curran MD. She presented for an outpatient upper endoscopy per Dr. Osborn. It was noted that she had increased swelling of her left lower extremity and pain and she was admitted to [facility] yesterday for further evaluation. She has poor peripheral veins. She needs resuscitation and also IV antibiotics and we were asked to place a central venous line. PAST MEDICAL HISTORY: She has a complicated past medical history, including hiatal hernia, kidney stones, fibromyalgia, hypertension, depression, chronic left lower extremity. PAST SURGICAL HISTORY: Multiple left knee surgeries. Carpal tunnel release. Left wrist. Appendectomy. Cholecystectomy. Polypectomy. Peter-en-Y gastric bypass in 2003. Hysterectomy. Hip placement. Knee replacement. Vein stripping. HOME MEDICATIONS: She is on numerous as listed in the chart. ALLERGIES: Multiple antibiotics, indomethacin, clonidine and adhesive tape. REVIEW OF SYSTEMS: A 14-point review of systems was performed and was essentially negative except for the history of present illness. She did admit to some dysphasia and that was why she was getting the upper endoscopy. She has had multiple left knee surgeries and has chronic edema involving the left lower extremity. There was no evidence of DVT on a Doppler exam on her admission. FAMILY HISTORY: Noncontributory. PHYSICAL EXAMINATION: General: Ms. Eason is resting comfortably in her room. She is awake and cooperative without focal deficit. She has no jaundice. No oral lesions. No cervical or supraclavicular lymphadenopathy. Heart: Regular rate. Lungs: Clear. She had no shortness of breathing. Abdomen: Soft, nontender, without palpable mass. Rectal/Vaginal: Exams were not performed. She does have palpable femoral pulses. She had swelling bilaterally in her lower extremities, but it was certainly increased on the left. Her left lower extremity was tender. She had purple discoloration of her skin bilaterally. There was no overt erythema. There were no wounds involving her lower extremities and no undrained purulence. She had no focal deficit. IMPRESSION: Chronic swelling left lower extremity with pain, status post numerous knee surgeries. She also has swelling involving the right lower extremity. She has evidence of dehydration and renal insufficiency. She has poor peripheral veins and we were asked to place central venous access. I have discussed the procedure in detail with her at the bedside, including risks of bleeding, pneumothorax, infection of the central venous line and nonfunction of the central venous line. She understands the need for this intravenous access and wants to proceed. cc: Chyna Isaac MD
[2016-08-16] MEDS: DUONEB (A & A) INH SCH ×6 (03:10→23:04)
[2016-08-16] MEDS: NORCO-10 PO PRN ×4 (03:16→22:16)
[2016-08-16] MEDS: NS 1,000 ML IV SCH (03:19)
--- NOTE | 2016-08-16 04:48 | ECHO REPORT ---
ORDER DATE: 08/15/2016 MEASUREMENTS: Left ventricular end-diastolic diameter 4.4, end-systolic diameter 2.4, septal thickness 0.9, posterior wall thickness 0.9, left atrium 4, aortic root 2.9 SUMMARY: 1. Adequate quality study. 2. Aortic valve is trileaflet and opens normally on 2-dimensional images. Peak gradient across the aortic valve is 13 mmHg with a mean gradient of 7 mmHg. There is mild aortic regurgitation. Mitral, tricuspid, and pulmonic valves are without structural abnormality with trace mitral regurgitation, mild tricuspid regurgitation, and trace pulmonic regurgitation. Estimated systolic PA pressure by Doppler is 40 mmHg. Aortic root is normal in size. 3. Normal left ventricular dimensions demonstrated. Estimated left ventricular ejection fraction is 75% with left ventricle appearing somewhat hyperdynamic. Doppler suggests normal left ventricular diastolic function. Left atrium is mildly enlarged. The right atrium and right ventricle are of normal size with grossly preserved right ventricular systolic performance. 4. No pericardial effusion. 5. Appearance of inferior vena cava suggests normal central venous pressure. CONCLUSIONS: 1. Mild aortic regurgitation. 2. Mild tricuspid regurgitation with mild pulmonary hypertension suggested by Doppler. 3. Normal left ventricular function without wall motion abnormality evident. 4. Mild left atrial enlargement. cc: MD Allyson Burns MD
--- NOTE | 2016-08-16 07:10 | PROGRESS NOTE ---
DATE: 08/15/2016 SUBJECTIVE: The patient states that she feels significantly better today. She reports that she has been able to eat soft foods and liquids without difficulty. She continues to describe the globus sensation, noting that breads and meats continued to stick. She has known cricopharyngeal achalasia and lower esophageal achalasia on modified barium swallow and awaits endoscopic dilation. OBJECTIVE: GENERAL: On exam, she is in no acute distress. Vital Signs: Her blood pressure is 131/67, pulse of 95, respirations 23, temp of 98.6 degrees. OBJECTIVE DATA: Reveals a hemoglobin of 10.4 with hematocrit of 33.0 and a white count of 18.73. She has 580,000 platelets. Sodium is 143, potassium 3.1, chloride 102, CO2 26, BUN 47, creatinine 1.2 with a glucose of 103. Calcium is 8.4, phosphorus 3.5, and albumin 2.5. RECOMMENDATION: 1. From a GI perspective, I will plan to perform an EGD with dilation prior to discharge if symptoms persist. 2. She has cellulitis of the left lower extremity that is currently being treated. I will continue to monitor her clinical course and plan intervention when her leukocytosis improves. 3. In the interim, I would continue a GI soft diet to avoid food impactions. She has had multiple episodes at home that have resolved either spontaneously or with self-induced vomiting. Most, she struggles with dry meat and bread. cc: MD Allyson Oliver MD [facility]
[2016-08-16 07:48] LABS: MANUAL DIFF NEEDED? NO
[2016-08-16 07:54] LABS: BASO% 1.2 % (0.0-0.8); EOS# 0.51 X1000 (0.0-0.7); EOS% 6.3 % (0.0-10.0); HEMATOCRIT 32.8 % (37.0-47.0); IMM GRAN# 0.02 X1000 (0.0-0.04); IMM GRAN% 0.2 % (0.0-0.5); LYMPH# 1.28 X1000 (1.2-3.4); LYMPH% 15.8 % (20.5-51.1); MCH 25.6 PG (27-31); MCHC 30.5 g/dL (33-37); MCV 83.9 FL (81-99); MONO# 0.82 X1000 (0.11-0.59); MONO% 10.1 % (1.7-9.3); MPV 9.3 FL (7.4-10.4); NEUT% 66.4 % (42.2-75.2); PLT 503 X1000 (130-400); RBC 3.91 XMIL (4.2-5.4)
--- NOTE | 2016-08-16 08:25 | Diag Imaging Result Document ---
PROCEDURE NAME: CHEST-PORTABLE - 08/16/2016 SINGLE FRONTAL RADIOGRAPH OF THE CHEST: COMPARISON: 08/15/2016. FINDINGS: Central line is in stable position. No new consolidation is identified. Cardiac silhouette is stable. IMPRESSION: Stable chest.
[2016-08-16 09:10] LABS: AGAP 16; ALBUMIN 2.5 g/dL (3.5-5.0); BUN 28 mg/dL (8-22); CALCIUM 8.6 mg/dL (8.8-10.2); CHLORIDE 105 mmol/L (98-107); COSMO 295; MAGNESIUM 1.8 mg/dL (1.5-2.7); POTASSIUM 3.8 mmol/L (3.5-5.1); SODIUM 146 mmol/L (136-145); TCO2 25 mmol/L (25-35)
[2016-08-16] MEDS: MERREM 500 MG in NS 50 ML IV SCH ×2 (10:26→18:23)
[2016-08-16] MEDS: PROTONIX IV SCH ×2 (10:26→22:31)
[2016-08-16] MEDS: SODIUM CHLORIDE 0.9% INJ SCH ×2 (10:26→22:31)
[2016-08-16] MEDS: BENTYL PO SCH ×4 (10:27→22:18)
[2016-08-16] MEDS: VANCOMYCIN 1 GM/NS 1 GM/250 ML IVPB IV SCH (10:28)
[2016-08-16] MEDS: ASPIRIN EC PO SCH (10:28)
[2016-08-16] MEDS: CARAFATE PO SCH ×4 (10:28→22:17)
[2016-08-16] MEDS: COREG PO SCH ×2 (10:28→22:17)
[2016-08-16] MEDS: LOVENOX SUBQ SCH (10:28)
[2016-08-16] MEDS: PATIENT'S OWN MED PO SCH (10:28)
[2016-08-16] MEDS: MYCOSTATIN SUSP PO SCH ×4 (10:28→22:18)
[2016-08-16] MEDS: ATIVAN PO PRN ×2 (14:56→22:31)
--- NOTE | 2016-08-16 15:33 | PROGRESS NOTE ---
DATE: 08/16/2016 PRESENT ILLNESS: The patient has a chronically infected left knee. Distal to the knee, she has leg cellulitis. The patient also has oral candidiasis. MEDICATION: The patient is receiving vancomycin and meropenem for her cellulitis. I have also ordered Mycostatin swish and swallow. PHYSICAL EXAMINATION: Vital Signs: Temperature is 98.0 degrees, pulse 103, respirations 20, blood pressure 169/92. General: This is an ill-appearing, elderly female. Currently, she is in no acute distress. Integument: Patient has a large amount of hyperpigmentation, where her skin is actually black. She has a chronically swollen left knee and distal to that is an erythematous part of her leg. Lungs: Clear to auscultation. Cardiovascular: Regular heart rate. Abdomen: Soft and nontender. Neurologic: Patient is alert. She can move her extremities, but she is very weak. There is no tremor. LABORATORY AND X-RAY: Creatinine 0.8. GFR is greater than 60. Blood and urine cultures are negative. Chest x-ray shows clear lung kelly. CBC shows a white count of 8120 , hemoglobin 10, and platelet count 503,000. ASSESSMENT AND PLAN: The patient has L leg cellulitis. Will continue treatment with vancomycin and meropenem. COMORBIDITIES: Multiple knee surgeries with chronic infection in the knee. Patient also has osteoarthritis and hypertension. cc: Tal Martinez MD [facility]
[2016-08-16] MEDS ORDERED: NEUTRA-PHOS PO ONE (15:40)
--- NOTE | 2016-08-16 16:19 | PROGRESS NOTE ---
DATE: 08/16/2016 SUBJECTIVE: The patient is resting comfortably in bed. No acute events noted overnight. OBJECTIVE: Vital Signs: Temperature 98 degrees, blood pressure 116/92, heart rate 103, respiration is 20, O2 saturations 97% on room air. General: This is a chronically ill-appearing, elderly female, lying in bed, in no acute distress. Head: Normocephalic, atraumatic. Heart: S1, S2. Normal. Tachycardic. Lungs: Clear to auscultation bilaterally. Abdomen: Positive bowel sounds. Soft, nontender, nondistended. Extremities: Positive for erythema in the left lower extremity with swelling and discoloration involving both lower extremities. LABS: White blood cell count 8, hemoglobin 10, hematocrit 32, platelets 503, 000. Sodium 146, potassium 3.8, chloride 105, CO2 25, BUN 28, creatinine 0.8, glucose 84, phosphorus 2.6, magnesium 1.8. ASSESSMENT AND PLAN: 1. Chronic left knee infection with cellultis. Continue on IV antibiotic therapy. 2. Acute cerebrovascular accident. Continue on aspirin and Pravachol plus physical therapy. 3. Dysphagia. Continue on Protonix. Gastroenterology is following. 4. Morbid obesity. Aware. 5. Acute kidney injury. Resolved. 6. Fibromyalgia. Continue on [place]. 7. Anxiety disorder. Continue on p.r.n. Ativan. 8. Hypophosphatemia. We will replace the patient's phosphorus. cc: Allyson Lim MD MTDD
--- NOTE | 2016-08-16 20:07 | Extremity Venous Study ---
PROCEDURE NAME: Venous U/S Left Leg - 08/14/2016 REFERRING PHYSICIAN: Samy Quintero MD. READING PHYSICIAN: Alfonso Nieto MD. PACKAGE REINSPECTOR: Bonita. INDICATION: Severe leg swelling and discoloration. Patient history also includes multiple surgeries of the left knee, history of DVT and vein stripping on the left. The study was limited due to the patient's obesity and significant edema. FINDINGS: The left common femoral, superficial femoral, deep femoral, popliteal, posterior tibial and peroneal veins were imaged throughout their course. All are compressible with forward flow. No thrombus is appreciated. The right common femoral vein is also imaged. It is compressible, patent and without thrombus. There is bilateral reflux in the common femoral veins and at the left saphenofemoral junction. INTERPRETATION: No evidence of deep or superficial venous thrombosis in the left lower extremity. There is reflux disease as described above. cc: Alfonso Nieto MD
[2016-08-16] MEDS: AMBIEN PO PRN (22:16)
[2016-08-16] MEDS: CARDIZEM CD PO SCH (22:17)
[2016-08-16] MEDS: PRAVACHOL PO SCH (22:17)
[2016-08-17] MEDS: XALATAN 0.005% OPH SOLN BOTH EYES SCH ×2 (00:10→22:00)
[2016-08-17] MEDS: NORCO-10 PO PRN ×6 (01:10→23:49)
[2016-08-17] MEDS: MERREM 500 MG in NS 50 ML IV SCH ×3 (01:11→15:49)
[2016-08-17] MEDS: ATIVAN PO PRN ×3 (01:15→15:49)
[2016-08-17] MEDS: DUONEB (A & A) INH SCH ×6 (03:42→22:50)
[2016-08-17 07:01] LABS: MANUAL DIFF NEEDED? NO
[2016-08-17 07:09] LABS: BASO% 1.4 % (0.0-0.8); EOS# 0.65 X1000 (0.0-0.7); EOS% 8.9 % (0.0-10.0); HEMATOCRIT 32.8 % (37.0-47.0); HEMOGLOBIN 9.9 g/dL (12.0-16.0); IMM GRAN# 0.02 X1000 (0.0-0.04); IMM GRAN% 0.3 % (0.0-0.5); LYMPH# 1.02 X1000 (1.2-3.4); MCH 25.3 PG (27-31); MCHC 30.2 g/dL (33-37); MCV 83.9 FL (81-99); MONO# 0.72 X1000 (0.11-0.59); MONO% 9.9 % (1.7-9.3); NEUT% 65.5 % (42.2-75.2); PLT 441 X1000 (130-400); RBC 3.91 XMIL (4.2-5.4)
[2016-08-17] MEDS: CARAFATE PO SCH ×4 (08:36→21:55)
[2016-08-17] MEDS: LOVENOX SUBQ SCH (08:37)
[2016-08-17] MEDS: SODIUM CHLORIDE 0.9% INJ SCH ×2 (08:37→20:55)
[2016-08-17] MEDS: ASPIRIN EC PO SCH (08:38)
[2016-08-17] MEDS: PROTONIX IV SCH ×2 (08:38→20:54)
[2016-08-17] MEDS: COREG PO SCH ×2 (08:38→21:55)
[2016-08-17] MEDS: BENTYL PO SCH ×4 (08:39→21:55)
[2016-08-17] MEDS: PATIENT'S OWN MED PO SCH (08:39)
[2016-08-17] MEDS: MYCOSTATIN SUSP PO SCH ×4 (08:39→22:33)
[2016-08-17] MEDS ORDERED: COLACE PO PRN (08:56)
[2016-08-17] MEDS: COLACE PO SCH ×2 (09:30→21:55)
[2016-08-17] MEDS: MIRALAX PO SCH ×2 (09:30→21:56)
--- NOTE | 2016-08-17 12:52 | PROGRESS NOTE ---
DATE: 08/17/2016 SUBJECTIVE: The patient is sitting up in a chair and she states that the swelling and pain in her left leg is improved. She has no other complaints today. OBJECTIVE: Vital Signs: Temperature 98.5 degrees, blood pressure 182/76, heart rate 84, respirations 20, O2 saturations 100% on room air. General: This is an elderly female, sitting in a chair in no acute distress. HEENT: Head normocephalic, atraumatic. Heart: S1, S2. Normal. Regular rate and rhythm. Lungs: Clear to auscultation bilaterally. No wheezes , no rales. No rhonchi. Abdomen: Positive bowel sounds. Soft, nontender, nondistended. Extremities: Erythema involving the left lower extremity, positive for swelling in the left leg. Neurologic: The patient is alert and oriented x3. LABS: White blood cell count 7.3, hemoglobin 9.9, hematocrit 32, platelets 441, 000. ASSESSMENT AND PLAN: 1. Chronic left knee infection with cellulitis. Continue on the current antibiotic regimen as directed by Dr. Martinez. 2. Acute cerebrovascular accident. Continue on aspirin and Pravachol. 3. Morbid obesity. Aware. 4. Dysphagia. Aware. The patient is on a GI soft diet. GI is following. 5. Fibromyalgia. Continue on [place]. 6. Anxiety disorder. Continue on p.r.n. Ativan. 7. Accelerated hypertension. We will adjust the patient's antihypertensives. 8. Deep vein thrombosis prophylaxis. Continue on Lovenox. cc: Allyson Lim MD MTDD
--- NOTE | 2016-08-17 17:21 | PROGRESS NOTE ---
DATE: 08/17/2016 PRESENT ILLNESS: The patient has a chronically infected left knee. She had cellulitis distal to the left knee but now it appears to have cleared. The patient also has oral candidiasis and it too is improving. MEDICATIONS: Patient is receiving vancomycin and meropenem for cellulitis, and Mycostatin swish and swallow for the oral candidiasis. This is day 3 of treatment with the vancomycin and meropenem. It is day 2 of treatment with the Mycostatin suspension. PHYSICAL EXAMINATION: Vital Signs: Temperature is 97.9 degrees, pulse 100, respirations 19, blood pressure 179/83. General: This is a chronically ill-appearing, elderly female who is in no acute distress at this time. ENT: The oral mucosa is much less erythematous. There are no white patches. Lungs: Clear to auscultation. Cardiovascular: Regular heart rate. Abdomen: Soft and nontender. Integument: Patient has extensive black dermatitis involving the legs. Extremities: The left knee is very swollen but the erythema in the distal part of the leg has responded well to treatment. LAB AND X-RAY: The patient's CBC today shows a white count of 7,300, hemoglobin 9.9, and platelet count 441,000. Blood and urine cultures are sterile. ASSESSMENT AND PLAN: Patient has leg cellulitis and oral candidiasis both of which are improving. She is currently receiving vancomycin, meropenem and Mycostatin. COMORBIDITIES: Multiple knee surgeries, chronic infection of the knee namely the left knee, osteoarthritis and hypertension. cc: Tal Martinez MD
[2016-08-17] MEDS: PRAVACHOL PO SCH (21:55)
[2016-08-17] MEDS: CARDIZEM CD PO SCH (21:55)
[2016-08-17] MEDS: VANCOMYCIN 1 GM/NS 1 GM/250 ML IVPB IV SCH (22:00)
[2016-08-17] MEDS: AMBIEN PO PRN (22:33)
[2016-08-18] MEDS: MERREM 500 MG in NS 50 ML IV SCH ×4 (01:00→23:58)
[2016-08-18] MEDS: DUONEB (A & A) INH SCH ×5 (03:35→23:13)
[2016-08-18] MEDS: NORCO-10 PO PRN ×4 (04:01→15:02)
[2016-08-18 07:07] LABS: MANUAL DIFF NEEDED? NO
[2016-08-18 07:17] LABS: EOS# 0.55 X1000 (0.0-0.7); EOS% 5.9 % (0.0-10.0); HEMATOCRIT 34.9 % (37.0-47.0); HEMOGLOBIN 10.6 g/dL (12.0-16.0); IMM GRAN# 0.07 X1000 (0.0-0.04); IMM GRAN% 0.8 % (0.0-0.5); LYMPH# 1.16 X1000 (1.2-3.4); LYMPH% 12.5 % (20.5-51.1); MCH 25.4 PG (27-31); MCHC 30.4 g/dL (33-37); MCV 83.7 FL (81-99); MONO# 0.84 X1000 (0.11-0.59); MONO% 9.1 % (1.7-9.3); MPV 9.1 FL (7.4-10.4); NEUT% 70.7 % (42.2-75.2); PLT 447 X1000 (130-400); RBC 4.17 XMIL (4.2-5.4)
[2016-08-18 07:26] LABS: AGAP 12; BUN 12 mg/dL (8-22); CALCIUM 8.7 mg/dL (8.8-10.2); CHLORIDE 105 mmol/L (98-107); COSMO 291; SODIUM 145 mmol/L (136-145); TCO2 28 mmol/L (25-35)
[2016-08-18] MEDS: PROTONIX IV SCH ×2 (09:03→21:15)
[2016-08-18] MEDS: ATIVAN PO PRN ×2 (09:04→21:00)
[2016-08-18] MEDS: MYCOSTATIN SUSP PO SCH ×4 (09:04→21:04)
[2016-08-18] MEDS: LOVENOX SUBQ SCH (09:04)
[2016-08-18] MEDS: MIRALAX PO SCH ×2 (09:05→21:01)
[2016-08-18] MEDS: CARAFATE PO SCH ×4 (09:05→20:59)
[2016-08-18] MEDS: BENTYL PO SCH ×4 (09:05→21:00)
[2016-08-18] MEDS: ASPIRIN EC PO SCH (09:05)
[2016-08-18] MEDS: COREG PO SCH ×2 (09:06→21:00)
[2016-08-18] MEDS: PATIENT'S OWN MED PO SCH (09:06)
[2016-08-18] MEDS: COLACE PO SCH ×2 (09:06→21:01)
[2016-08-18] MEDS ORDERED: LACRI-LUBE OPH OINT BOTH EYES PRN (11:00)
[2016-08-18] MEDS: CENTRUM TABLET PO SCH (12:35)
--- NOTE | 2016-08-18 14:11 | PROGRESS NOTE ---
DATE: 08/18/2016 SUBJECTIVE: The patient is resting comfortably in bed. She states that she did not sleep well last night because of her restless legs flare-up. She has less edema in her left lower extremity today. OBJECTIVE: Vital Signs: Temperature 97.4 degrees, blood pressure 155/83, heart rate 82, respirations 20, O2 saturation is 100% on room air. General: This is a chronically ill- appearing, elderly female, lying in bed in no acute distress. Head: Normocephalic, atraumatic. Heart: S1 and S2 normal. Regular rate and rhythm. Lungs: Clear to auscultation bilaterally. No wheezing. No rales. No rhonchi. Abdomen: Positive bowel sounds. Soft, nontender, nondistended. Extremities: Decreased erythema of the left lower extremity. Neurologic: The patient is alert and oriented x3. LABORATORIES: White blood cell count 9.2, hemoglobin 10, hematocrit 34, platelets 447,000. Sodium 145, potassium 4, chloride 105, CO2 of 28, BUN 12, creatinine 0.7, glucose 153. ASSESSMENT AND PLAN: 1. Chronic left knee infection with cellulitis. Improved. Continue on the current IV antibiotic regimen. 2. Acute cerebrovascular accident. Continue on aspirin and Pravachol. 3. Dysphagia. Improved. 4. Morbid obesity. Aware. 5. Restless legs syndrome. Continue on Mirapex. 6. Anxiety disorder. Continue on p.r.n. Ativan. 7. Hypertension. Continue on the current antihypertensives. 8. Deep vein thrombosis prophylaxis. Continue on Lovenox. 9. Continue with physical therapy. cc: Allyson Lim MD MTDD
--- NOTE | 2016-08-18 15:12 | PROGRESS NOTE ---
DATE: 08/18/2016 SUBJECTIVE: I am covering for Dr. Osborn. Patient was sitting up in the chair. She reported no difficulty in swallowing regular food and liquids, but she did have some discomfort, especially when she tried to take a large pill. She, however, has been able to eat well. OBJECTIVE: Vital signs: Temperature 97.4, pulse 82 per minute, breathing 20, blood pressure 155/93. Abdomen: Full, soft. Bowel sounds audible. She has discolored lower extremity both sides, especially on the left side. IMPRESSION: Dysphagia especially for solids. She will need EGD and dilation. Dr. Osborn is contemplating dilation prior to her discharge. At this point, no new suggestion. I will be available if needed for any gastrointestinal intervention. Dr. Osborn will be available to pick her up on Saturday. cc: Bandar Espinoza MD
[2016-08-18] MEDS: TIMOPTIC 0.5% OPH SOLUTION BOTH EYES SCH ×2 (16:02→20:59)
[2016-08-18] MEDS: XALATAN 0.005% OPH SOLN BOTH EYES SCH (20:57)
[2016-08-18] MEDS: CYMBALTA PO SCH (20:59)
[2016-08-18] MEDS: CARDIZEM CD PO SCH (21:00)
[2016-08-18] MEDS: PRAVACHOL PO SCH (21:00)
[2016-08-18] MEDS: MIRAPEX PO SCH (21:11)
[2016-08-18] MEDS: AMBIEN PO PRN (21:11)
[2016-08-18] MEDS: AMBIEN PO SCH (21:12)
[2016-08-18] MEDS: SODIUM CHLORIDE 0.9% INJ SCH (21:14)
[2016-08-19] MEDS: DUONEB (A & A) INH SCH ×6 (03:34→23:40)
[2016-08-19] MEDS: NORCO-10 PO PRN ×3 (05:38→21:51)
[2016-08-19 07:25] LABS: MANUAL DIFF NEEDED? NO
[2016-08-19 07:36] LABS: BASO% 1.2 % (0.0-0.8); EOS# 0.67 X1000 (0.0-0.7); EOS% 7.8 % (0.0-10.0); HEMATOCRIT 36.4 % (37.0-47.0); HEMOGLOBIN 11.1 g/dL (12.0-16.0); IMM GRAN# 0.09 X1000 (0.0-0.04); LYMPH# 1.14 X1000 (1.2-3.4); LYMPH% 13.2 % (20.5-51.1); MCH 25.5 PG (27-31); MCHC 30.5 g/dL (33-37); MCV 83.7 FL (81-99); MONO# 0.88 X1000 (0.11-0.59); MONO% 10.2 % (1.7-9.3); NEUT% 66.6 % (42.2-75.2); PLT 452 X1000 (130-400); RBC 4.35 XMIL (4.2-5.4)
[2016-08-19 07:48] LABS: AGAP 12; BUN 11 mg/dL (8-22); CALCIUM 8.8 mg/dL (8.8-10.2); CHLORIDE 101 mmol/L (98-107); COSMO 281; POTASSIUM 4.4 mmol/L (3.5-5.1); SODIUM 141 mmol/L (136-145); TCO2 28 mmol/L (25-35)
[2016-08-19] MEDS: MERREM 500 MG in NS 50 ML IV SCH ×2 (09:29→16:23)
[2016-08-19] MEDS: CARAFATE PO SCH ×4 (09:30→21:51)
[2016-08-19] MEDS: CENTRUM TABLET PO SCH (09:30)
[2016-08-19] MEDS: ATIVAN PO PRN ×2 (09:30→21:52)
[2016-08-19] MEDS: BENTYL PO SCH ×4 (09:30→21:52)
[2016-08-19] MEDS: COREG PO SCH ×2 (09:30→21:52)
[2016-08-19] MEDS: COLACE PO SCH ×2 (09:30→21:51)
[2016-08-19] MEDS: ASPIRIN EC PO SCH (09:30)
[2016-08-19] MEDS: PROTONIX IV SCH ×2 (09:31→21:52)
[2016-08-19] MEDS: LOVENOX SUBQ SCH (09:31)
[2016-08-19] MEDS: SODIUM CHLORIDE 0.9% INJ SCH ×2 (09:31→21:52)
[2016-08-19] MEDS: CYMBALTA PO SCH ×2 (09:32→21:53)
[2016-08-19] MEDS: TIMOPTIC 0.5% OPH SOLUTION BOTH EYES SCH ×2 (09:33→21:38)
[2016-08-19] MEDS: MIRALAX PO SCH ×2 (09:33→21:37)
[2016-08-19] MEDS: PATIENT'S OWN MED PO SCH (09:33)
[2016-08-19] MEDS: MYCOSTATIN SUSP PO SCH ×4 (09:33→21:53)
[2016-08-19] MEDS: ZOFRAN IV PRN (09:53)
[2016-08-19] MEDS: VANCOMYCIN 1 GM/NS 1 GM/250 ML IVPB IV SCH (10:34)
[2016-08-19] MEDS: APRESOLINE PO SCH ×2 (13:34→21:51)
--- NOTE | 2016-08-19 14:24 | PROGRESS NOTE ---
DATE: 08/19/2016 SUBJECTIVE: The patient complains of mild nausea this morning. She has no other complaints. OBJECTIVE: Vital Signs: Temperature 97 degrees, blood pressure 163/74, heart rate 92, respirations 20, O2 saturations 96% on room air. General: This is a chronically ill-appearing elderly female lying in bed in no acute distress. Head: Normocephalic, atraumatic. Heart: S1, S2. Normal. Tachycardic. Lungs: Clear to auscultation bilaterally. No wheezes, no rales. No rhonchi. Abdomen: Positive bowel sounds. Soft, nontender, nondistended. Extremities: Decreasing erythema in the left lower extremity. No edema in the lower left lower extremity. Neurologic: The patient is alert and oriented x3. LABS: White blood cell count 8.6, hemoglobin 11, hematocrit 36, platelets 452,000. Sodium 141, potassium 4.4, chloride 101, CO2 28, BUN 11, creatinine 0.6, glucose 96. ASSESSMENT AND PLAN: 1. Chronic left knee infection with cellulitis. Improved. Continue on IV antibiotic therapy. 2. Acute cerebrovascular accident. Continue on aspirin and Pravachol. 3. Hypertension. Will add hydralazine. Continue on Coreg. 4. Dysphagia. Improved. 5. Morbid obesity. Aware. 6. Restless legs syndrome. Continue on Mirapex. 7. Anxiety disorder. Continue on p.r.n. Ativan. 8. Deep vein thrombosis prophylaxis. Continue on Lovenox. 9. Continue with physical therapy. 10. Disposition. The patient states that she would like to resume home health upon discharge. cc: Allyson Lim MD
[2016-08-19] MEDS: XALATAN 0.005% OPH SOLN BOTH EYES SCH (21:49)
[2016-08-19] MEDS: CARDIZEM CD PO SCH (21:52)
[2016-08-19] MEDS: AMBIEN PO SCH (21:52)
[2016-08-19] MEDS: MIRAPEX PO SCH (21:52)
[2016-08-19] MEDS: PRAVACHOL PO SCH (21:52)
[2016-08-20] MEDS: MERREM 500 MG in NS 50 ML IV SCH ×3 (01:01→18:21)
[2016-08-20] MEDS: DUONEB (A & A) INH SCH ×6 (03:38→22:47)
[2016-08-20] MEDS: NORCO-10 PO PRN ×5 (04:23→23:43)
[2016-08-20] MEDS: APRESOLINE PO SCH ×2 (05:47→15:22)
[2016-08-20 06:49] LABS: MANUAL DIFF NEEDED? NO
[2016-08-20 07:35] LABS: AGAP 10; BUN 14 mg/dL (8-22); CALCIUM 8.7 mg/dL (8.8-10.2); CHLORIDE 102 mmol/L (98-107); COSMO 281; POTASSIUM 4.4 mmol/L (3.5-5.1); SODIUM 141 mmol/L (136-145); TCO2 29 mmol/L (25-35)
[2016-08-20 08:05] LABS: BASO% 1.1 % (0.0-0.8); EOS# 0.53 X1000 (0.0-0.7); EOS% 5.9 % (0.0-10.0); HEMATOCRIT 33.3 % (37.0-47.0); HEMOGLOBIN 10.1 g/dL (12.0-16.0); IMM GRAN% 1.1 % (0.0-0.5); LYMPH# 1.23 X1000 (1.2-3.4); LYMPH% 13.7 % (20.5-51.1); MCH 25.6 PG (27-31); MCHC 30.3 g/dL (33-37); MCV 84.5 FL (81-99); MPV 9.6 FL (7.4-10.4); NEUT% 68.2 % (42.2-75.2); PLT 400 X1000 (130-400); RBC 3.94 XMIL (4.2-5.4)
[2016-08-20] MEDS: CARAFATE PO SCH ×4 (08:39→20:58)
[2016-08-20] MEDS: MYCOSTATIN SUSP PO SCH ×4 (08:40→23:43)
[2016-08-20] MEDS: ATIVAN PO PRN (08:52)
[2016-08-20] MEDS: CENTRUM TABLET PO SCH (08:52)
[2016-08-20] MEDS: COLACE PO SCH ×2 (08:53→20:57)
[2016-08-20] MEDS: TIMOPTIC 0.5% OPH SOLUTION BOTH EYES SCH ×2 (08:53→23:46)
[2016-08-20] MEDS: COREG PO SCH ×2 (08:53→20:58)
[2016-08-20] MEDS: PROTONIX IV SCH ×2 (08:53→20:57)
[2016-08-20] MEDS: SODIUM CHLORIDE 0.9% INJ SCH ×2 (08:53→20:58)
[2016-08-20] MEDS: BENTYL PO SCH ×4 (08:53→20:58)
[2016-08-20] MEDS: LOVENOX SUBQ SCH (08:53)
[2016-08-20] MEDS: ASPIRIN EC PO SCH (08:54)
[2016-08-20] MEDS: CYMBALTA PO SCH ×2 (09:00→20:57)
[2016-08-20] MEDS: MIRALAX PO SCH ×2 (09:01→20:57)
[2016-08-20] MEDS: VANCOMYCIN 1 GM/NS 1 GM/250 ML IVPB IV SCH (09:02)
[2016-08-20] MEDS: PATIENT'S OWN MED PO SCH (09:02)
--- NOTE | 2016-08-20 12:03 | PROGRESS NOTE ---
DATE: 08/20/2016 SUBJECTIVE: Patient reports feeling fine. According to her, the antibiotic that she is getting is helping her a lot by decrease the swelling in the left lower extremity. OBJECTIVE: Vital Signs: Temperature 97.3 degrees, heart rate 104, respiratory rate 15, blood pressure 150/71, O2 saturation 97% on 2 L nasal cannula. General: This is a chronically ill appearing, and frail 75-year-old, female lying in bed, in no acute distress. HEENT: Head is normocephalic, atraumatic. Anicteric sclerae and pale conjunctivae. Neck: Supple. No JVD noted. No carotid bruits. Cardiovascular: S1, S2 heard. No murmurs, gallops, or rubs. Regular rate and rhythm. Respiratory: Clear bilaterally to auscultation. No work of breathing or using accessory muscles. Abdomen: Soft, nontender to palpation. Bowel sounds present. No organomegaly. Extremities: There is less edema in the left lower extremity with hyperpigmentation in both legs. Neurological: Patient is alert and oriented x3. LABORATORY DATA: Reviewed. ASSESSMENT AND PLAN: 1. Chronic left knee infection with cellulitis clinically improving. We will continue with antibiotic therapy and Dr. Martinez from Infectious disease is following this patient. 2. Acute cerebrovascular accident. We will continue with aspirin and Pravachol. 3. Hypertension. Patient is on Coreg and hydralazine has been added to her current treatment. 4. Dysphagia. Patient has been seen by Dr. Espinoza. At this point, we do not know if the Dr. Osborn her primary care is planning to do any dilatation of the esophagus. 5. Morbid obesity, aware. 6. Restless legs syndrome. We will continue with Mirapex. 7. Anxiety disorder. We will continue with p.r.n. Ativan. 8. Physical deconditioning. The patient reports that she wants to go home with home health instead of going to rehab because last time that she went there she spent almost 4 months and she did not see any improvement so she prefers to go home with home health. We will honor her wishes. cc: Neftaly Berry MD
[2016-08-20] MEDS: MERREM 1 GM in NS 50 ML IV SCH (18:23)
[2016-08-20] MEDS: MIRAPEX PO SCH (20:57)
[2016-08-20] MEDS: PRAVACHOL PO SCH (20:58)
[2016-08-20] MEDS: CARDIZEM CD PO SCH (20:58)
[2016-08-20] MEDS: AMBIEN PO SCH (20:58)
--- NOTE | 2016-08-20 22:21 | PROGRESS NOTE ---
DATE: 08/20/2016 PRESENT ILLNESS: The patient has a chronically infected left knee. 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 She also had cellulitis on her leg but this has cleared. The patient has oral candidiasis and it is improving with medication. MEDICATIONS: The patient is receiving vancomycin and meropenem. The dose of the vancomycin is 1 g IV every 24 hours and I am increasing the meropenem dose to 1 g IV every 8 hours. PHYSICAL EXAMINATION: Vital Signs: Temperature is 97.3 degrees, the pulse is 96, respirations 15, blood pressure 150/71. General: This is a chronically ill appearing elderly female who is in no acute distress. Integument: Patient has diffuse blackening of her skin. The left leg is not erythematous. It is much more swollen than the right leg. Abdomen: Soft and nontender. Lungs: Clear to auscultation. Cardiovascular: Regular heart rate. Chest: The patient has a Port-A- Cath present in the right upper chest. The site is not erythematous or swollen. LAB AND X-RAY: CBC-WBC 10.1, hgb 10.1, platelets 400K. Creatinine 0.6. GFR>60. No new x-rays. ASSESSMENT AND PLAN: The patient tells me that her left leg is feeling much better than it has in a long time because of the antibiotics she is receiving and she very much would like to continue to treat them. I think this is reasonable because the patient has definitely an infection in the leg and hopefully the antibiotics will clear it up although there is probably not a good chance that this will happen. In any event, it should make her leg much less painful. I put a consult in for [facility] which is the service she is use before to supply the antibiotic I specifically asked for 7 weeks of treatment because the patient has already had 1 week of treatment in the hospital. COMORBIDITIES: Include she has had multiple knee surgeries with a chronic infection of the left knee. She also has osteoarthritis. cc: Tal Martinez MD MTDZari
[2016-08-20] MEDS: XALATAN 0.005% OPH SOLN BOTH EYES SCH (23:44)
[2016-08-21] MEDS: APRESOLINE PO SCH ×4 (00:06→21:05)
--- NOTE | 2016-08-21 00:38 | PROGRESS NOTE ---
DATE: 08/20/2016 SUBJECTIVE: The patient states that she had a hard night overnight, but is feeling much better this afternoon. From a GI perspective, she reports that she has been able to tolerate a regular diet, as long as she avoids breads and dried foods. She currently remains on Protonix and Carafate for her upper GI symptoms. 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 She awaits endoscopic evaluation of her esophagus and her GE junction. RECOMMENDATIONS: 1. The patient is making clinical progress with regard to her lower extremity cellulitis and pain. She is tolerating a regular diet. It is reasonable to defer performing endoscopic evaluation and allow the patient to go home. As long as she continues to improve, we can defer her EGD with dilation. Therefore, I recommend continuing current medications. It is reasonable to discharge to home when she is stable from a medical standpoint. We will schedule her EGD as an outpatient at a later date. 2. Please have the patient return to clinic in 4-6 weeks after hospital discharge. cc: MD Neftaly Oliver MD Kathy J. Sparacino, MD Lynn R. Buckner, MD Leroy F. Harris, MD Richard S. Sharp, MD MTDD
[2016-08-21] MEDS: MERREM 1 GM in NS 50 ML IV SCH ×3 (02:52→21:02)
[2016-08-21] MEDS: DUONEB (A & A) INH SCH ×6 (03:12→23:19)
[2016-08-21] MEDS: NORCO-10 PO PRN ×3 (05:11→21:28)
[2016-08-21] MEDS: BENTYL PO SCH ×4 (09:58→20:59)
[2016-08-21] MEDS: COLACE PO SCH ×2 (09:58→20:56)
[2016-08-21] MEDS: CENTRUM TABLET PO SCH (09:59)
[2016-08-21] MEDS: ASPIRIN EC PO SCH (09:59)
[2016-08-21] MEDS: CARAFATE PO SCH ×4 (10:00→20:59)
[2016-08-21] MEDS: LOVENOX SUBQ SCH (10:01)
[2016-08-21] MEDS: COREG PO SCH ×2 (10:02→21:03)
[2016-08-21] MEDS: CYMBALTA PO SCH ×2 (10:02→20:56)
[2016-08-21] MEDS: MIRALAX PO SCH ×2 (10:03→21:03)
[2016-08-21] MEDS: PATIENT'S OWN MED PO SCH (10:03)
[2016-08-21] MEDS: MYCOSTATIN SUSP PO SCH ×4 (10:03→21:03)
[2016-08-21] MEDS: TIMOPTIC 0.5% OPH SOLUTION BOTH EYES SCH ×2 (10:03→21:01)
[2016-08-21] MEDS: PROTONIX IV SCH ×2 (10:04→20:56)
[2016-08-21] MEDS: SODIUM CHLORIDE 0.9% INJ SCH ×2 (10:04→20:56)
[2016-08-21] MEDS: VANCOMYCIN 1 GM/NS 1 GM/250 ML IVPB IV SCH (10:04)
[2016-08-21] MEDS ORDERED: NS 1,000 ML IV ONE (10:09)
[2016-08-21] MEDS: ZOFRAN IV PRN (13:48)
[2016-08-21] MEDS: ATIVAN PO PRN (13:48)
--- NOTE | 2016-08-21 16:26 | PROGRESS NOTE ---
DATE: 08/21/2016 SUBJECTIVE: Patient reports feeling fine, although a little bit dizzy and blood pressure has been reported in the range of 100 and 110. OBJECTIVE: Vital Signs: Temperature 97.4 degrees, heart rate 80, respiratory rate 16, blood pressure 130/50, O2 saturation 96% on room air. General Examination: This is a chronically ill- looking and frail, 75-year-old female lying in bed in no acute distress. HEENT: Head is normocephalic, atraumatic. Anicteric sclerae and pale conjunctivae. Mucous membranes moist. Neck: Supple. No JVD noted. No carotid bruits. No lymphadenopathy. No thyromegaly. Cardiovascular: S1 and S2 heard. No murmurs, gallops, or rubs. Regular rate and rhythm. Respiratory: Clear bilaterally to auscultation. No work of breathing or using accessory muscles. Abdomen: Soft, nontender to palpation. Bowel sounds present. No organomegaly. Extremities: There is less edema in the left lower extremity. There are hyperpigmented lesions in both legs, mostly noted in the right lower extremity. Neurological: Patient is alert and oriented x3. LABORATORY DATA: There are no laboratories from today, but from yesterday were completely normal. ASSESSMENT AND PLAN: 1. Chronic left knee infection with cellulitis. Her condition is clinically improving, so Dr. Martinez from Infectious Disease is planning to provide 8 weeks of antibiotics IV. All those services have been set up and the patient has a PICC line, so she is ready to go. 2. Acute cerebrovascular accident. We will continue with aspirin and Pravachol. 3. Hypertension. Blood pressure has been in the range of 100 and 120, and I think this range of blood pressure is low for her, so at this time she is getting hydralazine 25 mg p.o. t.i.d. and also she was getting carvedilol 12.5 q.12 hours, so we are going to just keep the doses of medication and see on resuming it tomorrow. 4. Dysphagia. Patient has been seen by Dr. Osborn yesterday and, because she is doing fine, they are planning to do an endoscopy as an outpatient. 5. Morbid obesity. Aware. 6. Restless legs syndrome. We will continue with the Mirapex. 7. Anxiety disorder. We will continue with p.r.n. Ativan. 8. Depression. Patient is already on fluoxetine and we are going to add Remeron to her current treatment. 9. Physical deconditioning. Patient, although she is feeling weak, she reports that she is going to be fine if she goes home with home health. We will definitely honor her wishes. cc: Neftaly Berry MD
--- NOTE | 2016-08-21 16:54 | PROGRESS NOTE ---
DATE: 08/21/2016 PRESENT ILLNESS: The patient has a chronically infected left knee; specifically, she has septic knee arthritis. She also had cellulitis in the distal part of her leg, but that has cleared. The patient also has oral candidiasis and that too is improving with medication. MEDICATION: The patient is receiving a combination of vancomycin and meropenem. This is day 7 of treatment with both of these agents. PHYSICAL EXAMINATION: Vital Signs: The patient's temperature is 97.4 degrees, pulse 80, respirations 16, blood pressure 130/50. General: This is a chronically ill-appearing, elderly female. She is in no acute distress. Ears/Nose/Throat: There are no white patches in the patient's mouth. Lungs: Clear to auscultation. Cardiovascular: Regular heart rate. Abdomen: Soft and not tender. Integument: Patient has numerous black macular lesions. Extremities: The left leg is swollen at the knee level and slightly proximal to that also. There is some pain when she moves her knee as well. LAB AND X-RAY: There is no lab or x-ray for today. ASSESSMENT AND PLAN: The patient has septic knee arthritis. My plan is to continue treatment with both the vancomycin and meropenem. The patient also has oral candidiasis, and I also plan to continue treatment with the nystatin swish and swallow. COMORBIDITIES: The patient's comorbidities include the following: She is elderly. She has had multiple knee surgeries of the left knee, and she also has osteoarthritis. cc: Tal Martinez MD
[2016-08-21] MEDS: CARDIZEM CD PO SCH (20:56)
[2016-08-21] MEDS: MIRAPEX PO SCH (20:57)
[2016-08-21] MEDS: AMBIEN PO SCH (20:58)
[2016-08-21] MEDS: PRAVACHOL PO SCH (20:59)
[2016-08-21] MEDS: XALATAN 0.005% OPH SOLN BOTH EYES SCH (21:00)
[2016-08-21] MEDS ORDERED: REMERON PO SCH (21:00)
[2016-08-22] MEDS: MERREM 1 GM in NS 50 ML IV SCH ×2 (03:24→10:00)
[2016-08-22] MEDS: NORCO-10 PO PRN ×2 (03:32→09:36)
[2016-08-22] MEDS: DUONEB (A & A) INH SCH ×2 (03:42→08:08)
[2016-08-22] MEDS: APRESOLINE PO SCH ×2 (05:31→13:39)
[2016-08-22] MEDS: PROTONIX IV SCH (08:46)
[2016-08-22] MEDS: SODIUM CHLORIDE 0.9% INJ SCH (08:46)
[2016-08-22] MEDS: COLACE PO SCH (08:47)
[2016-08-22] MEDS: CENTRUM TABLET PO SCH (08:47)
[2016-08-22] MEDS: ASPIRIN EC PO SCH (08:47)
[2016-08-22] MEDS: CARAFATE PO SCH ×2 (08:47→13:39)
[2016-08-22] MEDS: BENTYL PO SCH ×2 (08:47→13:39)
[2016-08-22] MEDS: LOVENOX SUBQ SCH (08:48)
[2016-08-22] MEDS: CYMBALTA PO SCH (08:48)
[2016-08-22] MEDS: COREG PO SCH (08:48)
[2016-08-22] MEDS: MIRALAX PO SCH (08:48)
[2016-08-22] MEDS: PATIENT'S OWN MED PO SCH (08:49)
[2016-08-22] MEDS: MYCOSTATIN SUSP PO SCH ×2 (08:55→13:39)
[2016-08-22] MEDS: VANCOMYCIN 1 GM/NS 1 GM/250 ML IVPB IV SCH (10:27)
[2016-08-22] MEDS: TIMOPTIC 0.5% OPH SOLUTION BOTH EYES SCH (10:28)
--- NOTE | 2016-08-22 12:22 | PROGRESS NOTE ---
DATE: 08/22/2016 PRESENT ILLNESS: The patient has a chronically infected left knee with septic arthritis. She also has oral candidiasis. MEDICATIONS: The patient has been on vancomycin and meropenem now for 8 days. PHYSICAL EXAMINATION: Vital Signs: Temperature is 97.7 degrees pulse 74, respirations 18, blood pressure 152/53. General: This is a chronically ill-appearing, elderly female. She is in no acute distress. Lungs: Clear to auscultation. Cardiovascular: Regular heart rate. Chest: Patient has a subclavian line present down the right side of the chest. Extremities: The patient's left leg remains very swollen. It is not erythematous and it is not tender. Integument: Patient has numerous black macular lesions on her arms and legs. LAB AND X-RAY: There is no new lab or x-ray for today. ASSESSMENT AND PLAN: [facility] has been consulted, and they are going to supply the patient's antibiotics, namely vancomycin 1 g intravenous every 24 hours and meropenem 1 g intravenous every 8 hours for 7 more weeks to complete an 8-week treatment course. I have requested that the subclavian intravenous be removed, and I have ordered that a PICC should be placed. I plan to see the patient in my office in 3-1/2 weeks and then again at 7 weeks when hopefully we can stop her antibiotics. Also I am going to give her a prescription for Mycostatin because it has helped clear her oral candidiasis. COMORBIDITIES: Comorbidities in this patient include the fact she is elderly, she has had multiple knee surgeries on the left leg, and she also has osteoarthritis. cc: Tal Martinez MD
[2016-08-22 12:44] LABS: INR 1.01; PROTIME 10.6 Seconds (9.2-11.7)
[2016-08-22] MEDS ORDERED: NS 250 ML ONE (13:37)
[2016-08-22] MEDS: ATIVAN PO PRN (14:04)
[2016-08-22 16:11] VITALS: BP 134/76
--- NOTE | 2016-08-23 04:01 | DISCHARGE SUMMARY ---
ADMISSION DATE: 08/14/2016 DISCHARGE DATE: 08/22/2016 CONSULTATIONS: Dr. Oksana Osborn with gastroenterology. Dr. Isaac with general surgery. Dr. Tal Martinez with infectious disease. PERTINENT PROCEDURES: 1. Head CT showed no hemorrhage, chronic microvascular ischemic changes with questionable left maxillary sinusitis. 2. Chest, abdomen, and pelvis CT showed postsurgical changes of interval hiatal hernia repair, mild segmental atelectasis and scarring at the left lung base, Retained barium in the left colon, and a moderate amount of retained fecal debris in the right colon, suggesting constipation, uncomplicated colonic diverticulosis, primarily at the sigmoid, nonobstructing stones in the left kidney. 3. Brain MRI showed an apparent 0.5 cm acute infarct at the lateral left cerebellum. No other visible abnormality. 4. Carotid Doppler showed mild atherosclerotic disease of the distal common and internal carotid arteries bilaterally, without evidence of a hemodynamically significant lesion in the either carotid system bilaterally. DISCHARGE DIAGNOSES: 1. Chronic left knee infection with cellulitis, improving. Followed by Dr. Tal Martinez with ID. Patient will continue with 8 weeks of IV antibiotics with vancomycin. Patient has been set up to have a PICC line, as well as a provider to provide the antibiotics. She also has [facility] [employer]. 2. Acute cerebrovascular accident. Continue with aspirin and Pravachol. 3. Hypertension. Continue with home medicines. 4. Dysphagia. The patient has been evaluated by Dr. Osborn. She will undergo an endoscopy as an outpatient. 5. Morbid obesity. Aware. 6. Restless legs syndrome. Continue Mirapex. 7. Anxiety disorder. Continue p.r.n. Ativan. 8. Depression. Continue patient's home Paxil. 9. Physical deconditioning. The patient has worked with rehab, even in light of her feeling weak, although she refuses to go to rehab, she states she will go home with her previous home health. HOSPITAL COURSE: Ms. Dhaliwal is a 75-year-old female with a history of colonic polyps, large hiatal hernia, restless legs syndrome, nephrolithiasis, GERD, esophageal web, asthma, fibromyalgia, hypertension, migraines, depression, morbid obesity, chronic left lower extremity lymphedema, and multiple surgeries on her left knee. Patient was sent to the ED for swelling in her left lower extremity and concern for cellulitis, when the patient was scheduled to undergo outpatient endoscopy. However, prior to her procedure, during the preop, the patient was noted to have erythema, swelling, and pain that involved her left leg. The patient has had multiple surgeries on that left leg, and chronic lymphedema. However, she states that the length of the warmth and having fever and chills for a week or so. She has been feeling very tired and a poor appetite. She also reported difficulty with swallowing. Patient did have a modified barium swallow done on August 02 that revealed an upper esophageal web and esophagogastric achalasia. She was scheduled to undergo an EGD with possible dilatation on the day of her admission to the ED. While she was in the ED, she was noted to be dehydrated. She had elevation of her BUN and creatinine at 55 and 1.1. The patient also reported that she could barely stand, secondary to the pain in her knee. Patient was admitted for chronic left knee infection with cellulitis, started on broad spectrum antibiotics, ruled out for DVT with venous Dopplers. She was started on IV fluids for her dehydration, as well as her acute kidney injury. It was also felt she had a possible subacute infarct. This was confirmed with MRI. Would also ask Dr. Osborn to follow up with the patient. In regards to her dysphagia, she was started on Protonix, as well as Carafate. The patient can receive an outpatient EGD when she is more clinically stable. Orthopedics also saw the patient, felt that amputation was really the only option. General surgery was consulted. However, the patient did not agree to an amputation. She is going to be going home with IV antibiotics. The patient did have a slight improvement in her left leg, by the way of decreased swelling in her left lower extremity. Her pain has been well-controlled. The patient has been working with physical therapy. However, she has refused to go to rehab. She states she will go home with her home health, as well as IV antibiotics that have been set up. She will need to be on a full 8 weeks of IV vancomycin, and follow up with Dr. Tal Martinez, as well as her orthopedist. Patient is being discharged home today with home health. VITAL SIGNS: Temperature is 97.7 degrees, heart rate 74, respirations 18, blood pressure 152/53, O2 is 100% on room air. DISCHARGE DIET: GI soft. DISCHARGE MEDICATIONS: 1. Vancomycin, as per Dr. Tal Martinez, for 8 weeks. 2. Calcium 500 mg p.o. daily. 3. Carvedilol 6.25 mg p.o. b.i.d. 4. Catapres 0.1 mg p.o. b.i.d. 5. Voltaren 1% gel 2 g topical 4 times a day. 6. Bentyl 10 mg p.o. 4 times a day. 7. Cardizem CD 180 mg p.o. at bedtime. 8. Cymbalta 80 mg p.o. b.i.d. 9. Lasix 1-2 tabs p.o. p.r.n. 10. Apresoline 25 mg p.o. t.i.d. 11. [place] 10/325 1 each p.o. q.4 hours p.r.n. 12. Xalatan 1 drop both eyes at bedtime. 13. Ativan 1-2 tabs p.o. p.r.n. 14. Urolet MB tablet 1 each p.o. daily. 15. Remeron 30 mg p.o. at bedtime. 16. Centrum tablet 1 each p.o. daily. 17. Protonix 40 mg p.o. daily. 18. Klor-Con 20 mEq p.o. p.r.n. 19. Mirapex 0.25 mg p.o. at bedtime. 20. Carafate 1 g p.o. 4 times a day. 21. Bactrim DS 1 each p.o. b.i.d. 22. Ambien 10 mg p.o. at bedtime. FOLLOWUP: Patient is being discharged home with home health and IV antibiotics. Patient will need to follow up with Dr. Tal Martinez in 3-1/2 weeks, as well as her primary care physician Dr. Jeannine Curran in 7-10 days. Patient can return to the ED for any worsening of symptoms. TIME SPENT: 40 minutes. Dictated by UMER Floyd for Neftaly Berry MD cc: MD Jeannine Jones MD
== END 2016-08-22 16:46 | disposition home health service (06) ==
LOC: 3N 09:50 → ED 09:50 → OBSVTOIN 21:13 → SUATTDRO 21:13 → UNDODISIN 08-16 13:30
PROVIDERS: ATTEND Internal Medicine

== ENCOUNTER 2016-09-04 00:09 | Inpatient (IN) ==
[2016-09-04 01:56] LABS: MANUAL DIFF NEEDED? NO
[2016-09-04 02:00] LABS: BASO% 1.5 % (0.0-0.8); EOS# 0.54 X1000 (0.0-0.7); EOS% 7.3 % (0.0-10.0); HEMATOCRIT 31.4 % (37.0-47.0); HEMOGLOBIN 9.6 g/dL (12.0-16.0); IMM GRAN# 0.04 X1000 (0.0-0.04); IMM GRAN% 0.5 % (0.0-0.5); LYMPH# 1.33 X1000 (1.2-3.4); MCH 25.6 PG (27-31); MCHC 30.6 g/dL (33-37); MCV 83.7 FL (81-99); MONO# 0.95 X1000 (0.11-0.59); MONO% 12.9 % (1.7-9.3); MPV 9.7 FL (7.4-10.4); NEUT% 59.8 % (42.2-75.2); PLT 414 X1000 (130-400); RBC 3.75 XMIL (4.2-5.4)
[2016-09-04 02:33] LABS: AGAP 12; ALBUMIN 3.1 g/dL (3.5-5.0); ALKALINE PHOSPHATASE 113 U/L (32-104); BUN 23 mg/dL (8-22); CHLORIDE 99 mmol/L (98-107); COSMO 278; GOT 19 U/L (10-30); GPT 9 U/L (10-36); POTASSIUM 4.1 mmol/L (3.5-5.1); SODIUM 138 mmol/L (136-145); TCO2 27 mmol/L (25-35); TOTAL BILIRUBIN 0.17 mg/dL (0.20-1.00); TOTAL PROTEIN 6.9 g/dL (6.3-8.3)
--- NOTE | 2016-09-04 03:08 | PROVIDER DOCUMENTATION ---
This chart was entered by Eva Perry Scribe, acting as scribe for Ezra Puga MD. HPI-Musculoskeletal Pain/Inj - GENERAL Chief Complaint: Edema Stated Complaint: EXTERMITY SWELLING/PAIN Time Seen by Provider: 09/04/16 00:36 Source: patient - HX OF PRESENT ILLNESS-MUSKULOSKELTAL Nature of Presenting Problem: 75 Y/O F presents to ED with Extremity Pain. Pt states had an onset this afternoon of pedal edema to the left leg, believes she may have a blood clot in her leg. Pt also c/o of left hip pain states unable to bear weight with or without movement. Pt states she has had 3 hip surgeries on that hip in the past , and bilateral knee replacements. Pt states that in 2014 her left knee during the surgery she got staph and strep to the bone in 2014. Pt has a hx of blood clots 2 in leg and 1 in lungs. Quality of Pain: reports: aching Severity in ED: severe Onset/Duration: this afternoon Timing: still present Any recent injury?: No Locality of Occurance: Home Similar Symptoms Previously?: Yes Recently seen or treated by another doctor?: Yes - HIP/PELVIS PAIN/INJURY Hip Pain Location: reports: hip (L) Pain Radiation: reports: no radiation Context / Method of Injury: reports: unknown Associated Symptoms: reports: denies symptoms - LOWER EXTREMITY PAIN/INJURY Lower Extremities Pain: leg: left, knee: left Context / Method of Injury: reports: unknown Associated Symptoms: reports: other (pedal edema) Review of Systems - Adult - REVIEW OF SYSTEMS - ADULT Constitutional: denies: chills, fever Eyes: reports: no symptoms reported Ears, Nose, Mouth & Throat: reports: no symptoms reported Cardiovascular: reports: no symptoms reported Respiratory: reports: no symptoms reported Gastrointestinal: reports: no symptoms reported Genitourinary: reports: no symptoms reported Musculoskeletal: reports: joint pain, joint swelling, muscle aches, other ( pedal edema of left leg) Integumentary: reports: no symptoms reported Neurological: reports: no symptoms reported Psychiatric: reports: no symptoms reported Endocrine: reports: no symptoms reported Hematologic/Lymphatic: reports: no symptoms reported Allergic/Immunologic: reports: no symptoms reported All Other Systems: Reviewed and Negative Past History - Adult - PAST MEDICAL HISTORY-ADULT Review of Records: reports: Old Records Reviewed, Nursing Assessment Review, Medications Reviewed, Social history reviewed & non-contributory. Major Childhood Illnesses: reports: denies history Cardiovascular: reports: HTN Respiratory: reports: asthma Gastrointestinal: reports: GERD Obstetrical/Gynecological: reports: denies history Genitourinary: reports: denies history Musculoskeletal: reports: neck/back injury, chronic pain, arthritis Neurological: reports: denies history Endocrine/Immune: reports: denies history Other Conditions: reports: cataract/glaucoma - PRIOR SURGERIES/PROCEDURES Surgical/Procedure History: reports: appendectomy, cholecystectomy, hysterectomy , tonsillectomy, hernia repair, orthopedic (extremity), other - PRIOR HOSPITALIZATIONS Prior Hospitalizations: reports: for other non-related - IMMUNIZATION STATUS Childhood Immunizations: See Nurse Assessment Flu Vaccine: See Nurse Assessment - FAMILY HISTORY Family History: reviewed, not pertinent - SOCIAL HISTORY Smoking: non-smoker Substance Use: none/never Alcohol Use Frequency: never Living Situation: family Physical Exam-Injury Related - Physical Exam-Injury Related General Appearance: alert, no apparent distress Eyes: PERRL/EOMI, pink conjunctivae Head, Ears, Nose, Mouth & Throat: normocephalic/atraumatic, moist mucous membranes, normal ENT inspection, TMs normal, pharynx normal Neck: non-tender, full range of motion, other (distended neck veins) Respiratory: chest non-tender, lungs clear, normal breath sounds Cardiovascular: systolic murmur (2/6) Abdominal Exam: normal bowel sounds, non tender, soft Extremity: erythema, pedal edema (left leg), swelling (left leg), tenderness ( left hip), other (necrosis forming on bilateral feet). negative: normal gait, normal inspection Integumentary: normal color, warm/dry Neurologic: recreation professor II-XII nml as tested Psych/Mental Status: normal mood/affect, normal thought content, normal thought process, oriented x 3 - Glascow Coma Score Best Eye Response (Kevin): (4) open spontaneously Best Verbal Response ([place]): (5) oriented Best Motor Response (Kevin): (6) obeys commands Kevin Total: 15 Progress - PLAN OF CARE/RESULTS Progress/Plan/Lab Results: Vital Signs - 8 hr 09/04/16 00:38 Temperature 97.9 F Pulse Rate 107 H Respiratory Rate 24 Blood Pressure 175/85 O2 Sat by Pulse Oximetry 100 Laboratory Results - last 24 hr 09/04/16 09/04/16 00:32 00:32 WBC 7.39 RBC 3.75 L Hgb 9.6 L Hct 31.4 L MCV 83.7 MCH 25.6 L MCHC 30.6 L RDW Std Deviation 15.3 H Plt Count 414 H MPV 9.7 Immature Gran % (Auto) 0.5 Neut % (Auto) 59.8 Lymph % (Auto) 18.0 L Runnels % (Auto) 12.9 H Eos % (Auto) 7.3 Baso % (Auto) 1.5 H Immature Gran # (Auto) 0.04 Neut # (Auto) 4.42 Lymph # (Auto) 1.33 Runnels # (Auto) 0.95 H Eos # (Auto) 0.54 Baso # (Auto) 0.11 Sodium 138 Potassium 4.1 Chloride 99 Carbon Dioxide 27 Anion Gap 12 BUN 23 H Creatinine 0.8 Estimated GFR/1.73 m2 > 60 BUN/Creatinine Ratio 29 Glucose 76 Calculated Osmolality 278 Calcium 9.0 Total Bilirubin 0.17 L AST 19 ALT 9 L Alkaline Phosphatase 113 H Total Protein 6.9 Albumin 3.1 L Globulin 3.8 Albumin/Globulin Ratio 0.8 Orders Category Date Time Status HIP 1 VIEW LEFT [RAD] Stat Exams 09/04/16 01:00 Taken CBC WITH ELECTRONIC DIFF [HEME] Stat Lab 09/04/16 00:32 Completed COMPREHENSIVE METABOLIC PANEL [CHEM] Stat Lab 09/04/16 00:32 Completed Result Diagrams: 09/04/16 00:32 09/04/16 00:32 - XRAY 1 XRAY: Left XRAY Study: Hip Impression: Normal XRAY Interpretation: NAD Departure - Departure Time of Disposition Decision: 03:06 DIAGNOSIS: Lymphedema Cellulitis Qualifiers: Site of cellulitis: extremity Laterality: left Disposition: ADMITTED INPATIENT 09 Certified Medical Emergency: Emergent Condition: Fair - Critical Care Note This patient required my direct & personal management of CC.: No This chart was documented by the indicated scribe, (Eva Perry Scribe) and accurately reflects the services I performed and decisions made by me, Ezra Puga MD, as attested by the provider's signature.
[2016-09-04] MEDS ORDERED: NORCO-7.5 PO ONE (04:00)
[2016-09-04 04:24] LABS: INR 0.96; PROTIME 10.1 Seconds (9.2-11.7); PTT 29.4 Seconds (22.0-36.0)
[2016-09-04 04:41] LABS: URINE CULTURE NEEDED? NO; URINE MICRO REVIEW NEEDED? NO; URINE SOURCE CATH
[2016-09-04 04:43] LABS: BILIRUBIN URINE NEGATIVE (NEGATIVE); BLOOD URINE NEGATIVE (NEGATIVE); COLOR YELLOW; GLUCOSE URINE NEGATIVE (NEGATIVE); LEUKOCYTES URINE NEGATIVE (NEGATIVE); NITRITE URINE NEGATIVE (NEGATIVE); PH URINE 6.5; PROTEIN URINE NEGATIVE (NEGATIVE); TURBIDITY URINE CLEAR (CLEAR); UR EPITHELIAL CELLS <10 /HPF (<10); URINE BACTERIA NEGATIVE /HPF; URINE RBC <10 /HPF (<10); URINE WBC <10 /HPF (<10); UROBILINOGEN URINE NORMAL (NORMAL)
--- NOTE | 2016-09-04 08:03 | Diag Imaging Result Document ---
PROCEDURE NAME: HIP 1 VIEW LEFT - 09/04/2016 PORTABLE LEFT HIP, TWO VIEWS: FINDINGS: There has been orthopedic replacement of the left hip. No dislocation. No evidence of loosening. There has also been orthopedic surgery with a plate and wires in the mid femur and surgery distally. IMPRESSION: No acute abnormality of the hip.
[2016-09-04] MEDS ORDERED: TYLENOL PO PRN (08:21)
[2016-09-04] MEDS: NORCO-10 PO PRN ×3 (08:49→20:17)
[2016-09-04] MEDS ORDERED: NS IV SCH (09:00)
[2016-09-04] MEDS ORDERED: CUBICIN IV SCH (09:00)
--- NOTE | 2016-09-04 09:33 | Diag Imaging Result Document ---
PROCEDURE NAME: CHEST-PORTABLE - 09/04/2016 CHEST, SINGLE VIEW: INDICATION: Shortness of breath. COMPARISON: 08/16/2016. FINDINGS: There is cardiomegaly with a right shoulder arthroplasty. There is marked degenerative change in the left shoulder. There is a left PICC catheter. The right lung is clear. It is difficult to exclude a left basilar infiltrate. IMPRESSION: 1. Cardiomegaly. 2. Cannot exclude a left lower lobe infiltrate given the portable technique, however, the density may simply be related to the patient's known hiatal hernia.
[2016-09-04] MEDS: CALTRATE 600 PO SCH (09:38)
[2016-09-04] MEDS: BENTYL PO SCH ×4 (09:38→21:32)
[2016-09-04] MEDS: CENTRUM TABLET PO SCH (09:39)
[2016-09-04] MEDS: COREG PO SCH ×2 (09:39→21:32)
[2016-09-04] MEDS: CARAFATE PO SCH ×4 (09:39→21:32)
[2016-09-04] MEDS: CATAPRES PO SCH ×2 (09:39→21:33)
[2016-09-04] MEDS: DIOVAN PO SCH (09:40)
[2016-09-04] MEDS: CYMBALTA PO SCH ×2 (09:40→21:50)
[2016-09-04] MEDS: HYDROCHLOROTHIAZIDE PO SCH (09:41)
[2016-09-04] MEDS: LOVENOX SUBQ SCH (09:41)
[2016-09-04] MEDS: PROTONIX PO SCH (09:41)
[2016-09-04] MEDS ORDERED: HEPARIN ONE (10:24)
--- NOTE | 2016-09-04 11:12 | HISTORY AND PHYSICAL ---
DATE AND TIME: September 04, 2016 at 0445. PRIMARY CARE PROVIDER: Dr. Jeannine Curran. CHIEF COMPLAINT: Left lower extremity pain and swelling. HISTORY OF PRESENT ILLNESS: Ms. Dhaliwal is a 75-year-old female with a past medical history of previous left knee replacement as well as left hip replacement. She has had a history of multiple left knee surgeries as well as recurrent problems with left lower extremity cellulitis and chronic left lower extremity lymphedema. She was most recently admitted on August 14, 2016 for similar complaints of left lower extremity pain and swelling. During this admission the patient was evaluated by Dr. Oscar with orthopedic surgery as well as Dr. Isaac with general surgery and there was a mention of recommended amputation of left lower extremity, though the patient did not agree to this. She was ultimately discharged home on IV antibiotics per PICC line of vancomycin and meropenem and was to follow up with Dr. Tal Martinez. The patient presents to the ER tonight with complaints of left lower extremity swelling, pain, and redness. She reports that this began to get worse approximately 2 weeks ago. The patient did report some feeling of fever, body aches, and chills as well. She also reports that since being discharged she has been able to get up and ambulate with a walker, though is relying more on her a wheelchair at this time. She also reports that she is hardly able to put any weight on her left lower extremity due to the pain. The patient did also report onset of some dizziness this morning as well as some shortness of breath. She does report that she has had some sinus drainage and did have a productive cough this morning with some yellow sputum. Patient reports that she does have some intermittent chest pain frequently that has been ongoing for quite some time. She has a history of tachycardia and takes Cardizem for this and reports that when her heart rate becomes elevated that she does have chest pain associated with this at times. She states this is in her left chest, nonradiating, and is a dull, achy type pain in nature. The patient did report that yesterday morning she did have some bright red blood on her urinary incontinence pad. Patient does report a history of hemorrhoids. Other than this, she denied any hematochezia or melena recently. She denies any abdominal pain, nausea, or vomiting. She also denies any dysuria or urinary frequency. Upon evaluation in the ER the patient was found to have a moderate amount of swelling, erythema, and tenderness noted to her left lower extremity. Patient did have tenderness noted to her calf area as well and does have a history of previous DVT and pulmonary embolism per the patient. D- dimer was elevated at 3.66. At this time we will admit the patient for further treatment and evaluation of her left lower extremity cellulitis and associated symptoms. REVIEW OF SYSTEMS: A 12 point review of systems was conducted with the patient. All were negative except for pertinent positives mentioned in the above HPI. PAST MEDICAL HISTORY: 1. Colonic polyps. 2. Large hiatal hernia. 3. Restless legs syndrome. 4. Nephrolithiasis. 5. Gastroesophageal reflux disease. 6. Esophageal web and esophagogastric achalasia. 7. Dysphagia. 8. Asthma. 9. Fibromyalgia. 10. Hypertension. 11. Migraines. 12. Depression. 13. Morbid obesity. 14. CVA. 15. Tachycardia. 16. Recent left lower extremity cellulitis. 17. Chronic left lower extremity lymphedema. 18. History of DVT and pulmonary embolism. PAST SURGICAL HISTORY: 1. Left wrist surgery for carpal tunnel syndrome. 2. Appendectomy. 3. Cholecystectomy. 4. Polypectomy. 5. Gastric bypass in 2003. 6. Hysterectomy. 7. Hip replacement. 8. Knee replacement with multiple surgeries to her left knee. 9. Vein stripping. FAMILY HISTORY: There is a family history of esophageal cancer and gastroesophageal reflux disease. SOCIAL HISTORY: No known history of tobacco, alcohol, or illicit drug use. The patient is a and currently lives alone here in [place], though does have friends who are able to help her out when needed. Her son is recently . When speaking with the patient about this she did become tearful and stated she is having a hard time with this due to some family issues for which her son's is not allowing her to see her grandchildren and she states that she has been upset about this recently. ALLERGIES: Patient reports allergies to NSAIDs, Cleocin, Indocin, Remicade, penicillins, and adhesive tape. HOME MEDICATIONS: 1. Calcium 600 mg p.o. daily. 2. Coreg 6.25 mg p.o. b.i.d. 3. Celebrex 200 mg p.o. at bedtime. 4. Catapres 0.1 mg p.o. b.i.d. 5. Voltaren 1% gel 2 g topically 4 times a day. 6. Bentyl 10 mg p.o. 4 times a day. 7. Cardizem controlled dose 180 mg p.o. at bedtime. 8. Cymbalta 60 mg p.o. b.i.d. 9. Furosemide 1-2 tablets p.o. p.r.n. for edema. 10. Middlesex 10 mg 1 p.o. q.4 hours p.r.n. for pain. 11. Xalatan 0.005% ophthalmic solution 1 drop both eyes at bedtime. 12. Ativan 1-2 tablets p.o. p.r.n. for anxiety. 13. Urolet MB tablet 1 p.o. daily. 14. Minocycline 100 mg p.o. daily. 15. Remeron 30 mg p.o. at bedtime. 16. Centrum tablet 1 p.o. daily. 17. Nystatin powder 1 application as directed. 18. Nystatin suspension 5 mL p.o. 4 times a day. 19. Protonix 40 mg p.o. daily. 20. Klor-Con 20 mEq p.o. p.r.n. take as directed with Lasix. 21. Mirapex 0.25 mg p.o. at bedtime. 22. Selenium 200 mcg p.o. daily. 23. Carafate 1 g p.o. 4 times a day. 24. Valsartan/hydrochlorothiazide 320 mg/25 mg tablet 1 p.o. daily. 25. Ambien 10 mg p.o. at bedtime. DIAGNOSTIC DATA/LABORATORY RESULTS: White blood cell count is 7.39, hemoglobin 9.6, hematocrit 31.4, MCV is 83.7, platelet count 414,000. PTT is 10.1, INR 0.96, PTT 29.4. D- dimer 83.66. Sodium 138, potassium 4.1, chloride 99, bicarb 27, BUN is 23, creatinine 0.8, glucose 76, calcium 9. Liver function tests are within normal limits. Urinalysis was obtained via cath and was negative for protein, glucose, ketones, blood, nitrites, leukocyte, or bacteria. EKG showed sinus tachycardia at a rate of 105 with a QTc of 436. Left hip 2-view x-ray shows no acute abnormality of the hip per radiology. We have placed an order for a portable chest x-ray and are awaiting these results at this time. Pending diagnostic studies at this time are a chest x-ray, left lower extremity venous Doppler, blood cultures, and troponin. PHYSICAL EXAMINATION: VITAL SIGNS: Temperature 97.9 degrees, heart rate 108, respirations 16, blood pressure 139/52, oxygen saturation is 96% on room air. GENERAL: Ms. Dhaliwal is a pleasant, 75-year-old female, who was resting in the ER stretcher. She was in no acute distress. She was awake, alert, and able to answer all questions appropriately. HEENT: Head is atraumatic, normocephalic. Pupils are equal, round, reactive to light, 3 mm bilaterally and brisk. Sub-conjunctivae were pink. Oral mucosa is moist. Oropharynx is clear. No signs of oral candidiasis noted. NECK: Supple. Trachea midline. No carotid bruits noted on auscultation bilaterally. The patient does have some slight JVD noted with hepatojugular reflex present as well. CARDIOVASCULAR: Patient has a normal S1, S2. No murmurs, gallops, or rubs appreciated, with a slightly tachycardic rate that is regular. PULMONARY: Patient has symmetrical chest expansion bilaterally. Lung sounds were clear to auscultation bilateral full kelly. ABDOMEN: Soft, nontender, nondistended, though the patient does have a protuberant abdomen noted. Bowel sounds were present in all 4 quadrants, were normoactive. GENITOURINARY: Patient does have a Blum catheter in place at this time. She has have clear yellow urine noted to a Blum drainage bag. EXTREMITIES: The patient does have a moderate amount of swelling, erythema, and warmth noted to her left lower extremity from approximately just below the groin area all the way down. She also does have a large surgical scar noted to her left knee. Patient does have tenderness to her calf noted on palpation. The patient does have a brownish discoloration noted to mainly the anterior portion of her bilateral lower extremities. When the patient was asked about this, she stated this was not of new onset and has been there for quite some time. The patient does have capillary refill less than 3 in bilateral lower extremities. Pedal pulses were easily obtained via venous Doppler. Dorsalis pedis as well as posterior tibialis were present. Pulse, motor, and sensory is intact in all extremities. INTEGUMENTARY: Patient's skin is warm, dry, and intact except for previous abnormalities mentioned in above extremities exam. NEUROLOGICAL: Patient is alert and oriented to person, place, time, and situation. Cranial nerves 2 through 12 are grossly intact. ASSESSMENT AND PLAN: 1. Left lower extremity cellulitis. For this blood cultures have been obtained. The patient has been given a one time dose of daptomycin IV. Dr. Martinez has been consulted and we will await further instructions per him for recommended antibiotics. The patient was previously on vancomycin and meropenem IV outpatient. The patient's D-dimer was elevated as well. We have ordered a venous Doppler of the left lower extremity for further evaluation this and we will continue to follow. 2. Hypertension. Will continue her clonidine, valsartan/hydrochlorothiazide, as well as her Coreg. Will continue to monitor. 3. Tachycardia. Will continue the patient's Cardizem and she will be placed on a telemetry. 4. Anemia. This appears to be chronic at this time and is stable compared to previous laboratory results. We will continue to monitor this. 5. Gastroesophageal reflux disease. We will continue her Carafate as well as Protonix. 6. Restless legs syndrome. Will continue her Mirapex. 7. Fibromyalgia. Will continue her Middlesex. 8. Depression. We will continue the patient's Remeron as well as her Cymbalta. 9. The patient will be placed on the medical floor with telemetry. She will have vital signs q.4 hours. Will do strict intake and output q.8. Due to her history of dysphagia we will place her on aspiration precautions as well. She will be on a heart healthy diet. We have consulted case management as well as social research assistant for possible rehab placement upon discharge. DVT prophylaxis will be provided with Lovenox 40 mg subcutaneously q.24 hours. Further orders and recommendations pending hospital course, diagnostic studies, and physician evaluation. Dictated by UMER Celis for Mary Shipman MD Seen and examined pt with IT SALES REPRESENTATIVE and discussed plan of care. cc: Mary Shipman MD [facility]
[2016-09-04] MEDS ORDERED: VANCOMYCIN IV PER PHARMACY MISC SCH (11:30)
--- NOTE | 2016-09-04 11:55 | PROGRESS NOTE ---
DATE: 09/04/2016 PRESENT ILLNESS: Patient has a chronically infected left leg. She was doing better in the hospital mainly because she was getting IV antibiotics and most importantly she was elevating her leg. When she went home she barely elevated her legs much at all and she did a good bit of walking on it. The patient's leg now has become much more swollen and erythematous which is what 1 would expect because the patient has chronic disease in that leg that predisposes it to getting infected. The patient was told to elevate her leg as much as possible when she went home but she admitted to me that she did not elevate it for a prolonged period of time and when she did elevated it, it was not as high as it should have been. MEDICATIONS: I have started the patient back on vancomycin and meropenem. PHYSICAL EXAMINATION: Vital Signs: Temperature is 99 degrees, pulse 100, respirations 17, blood pressure 89/43. Patient weighs 172 pounds. General: This is an obese, elderly female. She is in no acute distress. Lungs: Clear to auscultation. Cardiovascular: Regular heart rate. Abdomen: Soft and nontender. Extremities: The right leg has a brownish discoloration secondary to chronic venous stasis and lysis. It is not as swollen as the left leg. The left leg is much more swollen and it is erythematous distally. The patient has a PICC in her left arm and the PICC site is not erythematous or swollen either. The left leg, however, is more swollen. It has a dark discoloration to it and also there is erythema distally. LAB AND X-RAY: Chest x-ray shows a questionable left lower lobe infiltrate. The left hip x-ray shows no acute disease. Creatinine 0.8. GFR is greater than 60. Urinalysis did not show any white cells or bacteria. Blood cultures are pending. CBC shows a white count of 7,390, hemoglobin 9.6, and platelet count 414,000. Creatinine 0.8. GFR is greater than 60. Urinalysis showed no bacteria or white cells. ASSESSMENT AND PLAN: The patient will be restarted on vancomycin and meropenem. I told her it was absolutely crucial she elevate her leg as much as possible, which in her case unfortunately means she will be bedridden. The patient's comorbidities include she is elderly. She has had multiple knee surgeries on the left leg. She also has osteoarthritis. She has chronic lymphatic venous blockage resulting in marked edema of the left leg and to a lesser extent the right leg. Both legs are discolored distally with a dark brown color. This is secondary to venous stasis with breakdown of red cells. cc: Tal Martinez MD
[2016-09-04] MEDS: MERREM 1 GM in NS 50 ML IV SCH ×2 (14:04→21:32)
[2016-09-04] MEDS: PATIENT'S OWN MED PO SCH (14:04)
[2016-09-04] MEDS: ZOFRAN IV PRN (18:26)
[2016-09-04] MEDS: REMERON PO SCH (21:32)
[2016-09-04] MEDS: MIRAPEX PO SCH (21:32)
[2016-09-04] MEDS: CARDIZEM CD PO SCH (21:32)
[2016-09-04] MEDS: CELEBREX PO SCH (21:34)
[2016-09-04] MEDS: AMBIEN PO SCH (21:41)
[2016-09-04] MEDS: ATIVAN PO PRN (21:41)
--- NOTE | 2016-09-05 03:41 | PROGRESS NOTE ---
DATE: 09/04/2016 ADDENDUM: I examined her this afternoon. She now has decided that she will most likely need amputation. She had refused this previously. We will get our local physician to evaluate. Per discussion with them, they elect to have this done with her primary surgeons in [place] but I think the surgeon she has seen in the past is a gastric bypass surgeon; I am not sure if they would be able to handle or not their area of expertise. But, I will go and consult Dr. Isaac for re-evaluation and decide about that process. I am not sure if she may need arterial flow studies. I do not see any evidence of evaluation previously. We will continue to follow. cc: Damian Sun MD
[2016-09-05] MEDS: XALATAN 0.005% OPH SOLN BOTH EYES SCH ×2 (04:06→21:21)
[2016-09-05] MEDS: MERREM 1 GM in NS 50 ML IV SCH ×3 (04:24→20:37)
[2016-09-05] MEDS: NORCO-10 PO PRN ×5 (04:24→23:45)
[2016-09-05 05:56] LABS: MANUAL DIFF NEEDED? NO
[2016-09-05 06:01] LABS: BASO% 1.9 % (0.0-0.8); EOS# 0.44 X1000 (0.0-0.7); EOS% 8.6 % (0.0-10.0); HEMOGLOBIN 9.3 g/dL (12.0-16.0); IMM GRAN# 0.02 X1000 (0.0-0.04); IMM GRAN% 0.4 % (0.0-0.5); LYMPH# 1.15 X1000 (1.2-3.4); LYMPH% 22.4 % (20.5-51.1); MCH 25.4 PG (27-31); MCV 84.7 FL (81-99); MONO# 0.63 X1000 (0.11-0.59); MONO% 12.3 % (1.7-9.3); MPV 8.7 FL (7.4-10.4); NEUT% 54.4 % (42.2-75.2); PLT 360 X1000 (130-400); RBC 3.66 XMIL (4.2-5.4)
[2016-09-05 06:18] LABS: AGAP 8; BUN 13 mg/dL (8-22); CALCIUM 8.6 mg/dL (8.8-10.2); CHLORIDE 103 mmol/L (98-107); COSMO 281; POTASSIUM 4.8 mmol/L (3.5-5.1); SODIUM 141 mmol/L (136-145); TCO2 30 mmol/L (25-35)
[2016-09-05] MEDS: BENTYL PO SCH ×4 (09:06→20:39)
[2016-09-05] MEDS: CALTRATE 600 PO SCH (09:06)
[2016-09-05] MEDS: LOVENOX SUBQ SCH (09:06)
[2016-09-05] MEDS: CATAPRES PO SCH ×2 (09:06→20:38)
[2016-09-05] MEDS: CARAFATE PO SCH ×4 (09:06→20:38)
[2016-09-05] MEDS: HYDROCHLOROTHIAZIDE PO SCH (09:07)
[2016-09-05] MEDS: DIOVAN PO SCH ×2 (09:07→20:39)
[2016-09-05] MEDS: CENTRUM TABLET PO SCH (09:07)
[2016-09-05] MEDS: COREG PO SCH ×2 (09:07→21:10)
[2016-09-05] MEDS: PROTONIX PO SCH (09:07)
[2016-09-05] MEDS: CYMBALTA PO SCH (09:07)
[2016-09-05] MEDS: PATIENT'S OWN MED PO SCH (09:08)
[2016-09-05] MEDS: ATIVAN PO PRN ×2 (10:20→21:10)
--- NOTE | 2016-09-05 15:15 | PROGRESS NOTE ---
DATE: 09/05/2016 SUBJECTIVE: Patient has no focal complaints. Still very upset about possibly undergoing amputation. OBJECTIVE: Vital Signs: Blood pressure 116/58, heart rate of 99, respiratory rate 18, temperature 98.5. Cardiovascular: Regular rate and rhythm. Pulmonary: Bilateral breath sounds. Clear to auscultation. GI: Soft, nontender, nondistended. Bowel sounds are positive. DIAGNOSTIC STUDIES: White count 5, hemoglobin and hematocrit 9 and 31, platelets 360. Basic was okay. Vancomycin level looked okay. PROBLEM LIST: 1. Left lower extremity: Chronic infection of her lower extremity. Continue empiric antibiotics. She is on vancomycin and Merrem. She is bed ridden obviously. Last recommendations were for possible amputation. However, we were getting surgery to re-evaluate this patient and decide about going through this process and we will go from there. At this point she has not made any definitive plans one way or another. 2. Hypertension appears to be stable. 3. Chronic pain disorder. Continue regular medications. DISPOSITION: Pending the rest of her workup we will continue to follow. cc: Damian Sun MD
--- NOTE | 2016-09-05 15:33 | PROGRESS NOTE ---
DATE: 09/05/2016 PRESENT ILLNESS: The patient has a very badly infected left leg. It got worse when the patient went home because she was on it quite frequently and when she was not on it she did not elevate her legs. Also, on x-ray there is a possible left lower lobe pneumonia. MEDICATIONS: The patient is on vancomycin and meropenem. This is the first day that patient has completed day 1 of treatment with these 2 antibiotics. PHYSICAL EXAMINATION: Vital Signs: Temperature is 98.5 degrees, pulse 99, respiration is 18, blood pressure 116/58. Generally: This is a chronically ill-appearing, elderly female. She is in no acute distress. Lungs: Clear to auscultation. Cardiovascular: Regular heart rate. Abdomen: Soft and nontender. Extremities: The patient has a PICC in her left arm. The site is not swollen or draining. The left leg is very swollen, it has dark discoloration, but just by being in bed since she came in yesterday the leg is much less swollen and it is not erythematous. The right leg to a lesser extent is swollen and it is not erythematous either. LAB AND X-RAY: There is no new x-ray today. The lab shows a CBC with a white count of 5140, hemoglobin 9.3, and platelet count 360,000. Creatinine is 0.6. GFR is 60. ASSESSMENT AND PLAN: The patient has a badly infected left leg and a possible pneumonia. Vancomycin and meropenem have been restarted. The cause of the patient's swollen leg is probably chronic lymphatic and venous blockage with resulting edema that has become secondarily infected. She also had septic left knee arthritis which would be a cause for the infection in her legs also. The plan is to make sure she elevates her leg as much as possible. Dr. Isaac is seeing the patient about the possibility of amputation of the leg. COMORBIDITIES: The patient's comorbidities include she is elderly, she also has had multiple surgeries on her left leg, she has gastroesophageal reflux disease, and obesity. cc: Tal Martinez MD
[2016-09-05] MEDS ORDERED: VANCOMYCIN 1 GM/NS 1 GM/250 ML IVPB IV SCH (16:00)
--- NOTE | 2016-09-05 16:51 | Extremity Venous Study ---
PROCEDURE NAME: Venous U/S Left Leg - 09/04/2016 PROCEDURE: Left lower extremity venous duplex and color flow imaging study. EQUIPMENT: atColl[employer] E 9 ultrasound system with a 9 L-D transducer. DATE OF STUDY: 09/04/2016. REFERRING PHYSICIAN: Dr. Puga, outpatient. PATIENT PROFILE: A 75-year-old female. GUIDANCE DIRECTOR: Angy Mesa RVT. INDICATIONS: The patient has a history of vein stripping involving the left lower extremity. Swelling of the limb, ICD 10 M 79.89. FINDINGS: The left common femoral vein and its branches, deep and superficial femoral veins were satisfactorily imaged. They had flow through them and were compressible. Left popliteal vein and the deep veins below the left knee were all compressible and had flow through them. The superficial veins were compressible throughout their length. INTERPRETATION: No evidence of acute deep or superficial venous thrombosis of the left lower extremity. cc: Chyna Isaac MD
--- NOTE | 2016-09-05 16:56 | VASCULAR LAB ---
PROCEDURE NAME: Arterial Bilateral Legs - 09/04/2016 REFERRING PHYSICIAN: Damian Sun MD INDICATIONS: Claudication, bilateral legs (ICD-10 170.213) The patient does have a history of vein stripping, stroke, and hypertension. She does have ulcerations involving her left lower extremity. FINDINGS: Systolic brachial blood pressure on the right is 115 mmHg; the right low thigh is 166 mmHg, left low thigh 147 mmHg; right calf 133 mmHg, left calf 124 mmHg; right ankle is 122 mmHg, left ankle is 102 mmHg. There is pulsatile flow on both feet and both great toes. The right ankle-brachial index is 1.06 at rest. The left ankle-brachial index is 0.89 at rest. INTERPRETATION: Left femoral popliteal arterial disease, which is severe enough to cause claudication symptoms. There appears to be normal arterial flow to the right lower extremity at rest. cc: MD Damian Bello MD
[2016-09-05] MEDS: REMERON PO SCH (20:38)
[2016-09-05] MEDS: MIRAPEX PO SCH (20:38)
[2016-09-05] MEDS: CELEBREX PO SCH (20:38)
[2016-09-05] MEDS: CARDIZEM CD PO SCH (20:39)
[2016-09-05] MEDS: AMBIEN PO SCH (20:39)
[2016-09-06] MEDS: NORCO-10 PO PRN ×4 (02:41→16:42)
[2016-09-06] MEDS: MERREM 1 GM in NS 50 ML IV SCH ×2 (05:04→13:32)
[2016-09-06 07:23] LABS: HEMATOCRIT 30.6 % (37.0-47.0); HEMOGLOBIN 9.2 g/dL (12.0-16.0); MCH 25.8 PG (27-31); MCHC 30.1 g/dL (33-37); MCV 85.7 FL (81-99); MPV 9.1 FL (7.4-10.4); RBC 3.57 XMIL (4.2-5.4)
[2016-09-06 07:38] LABS: AGAP 8; BUN 13 mg/dL (8-22); CALCIUM 8.8 mg/dL (8.8-10.2); CHLORIDE 104 mmol/L (98-107); COSMO 281; MAGNESIUM 1.9 mg/dL (1.5-2.7); SODIUM 141 mmol/L (136-145); TCO2 29 mmol/L (25-35)
[2016-09-06] MEDS ORDERED: TIMOPTIC 0.5% OPH SOLUTION OPH SCH (09:00)
[2016-09-06] MEDS: BENTYL PO SCH ×3 (10:30→16:39)
[2016-09-06] MEDS: COREG PO SCH (10:30)
[2016-09-06] MEDS: CATAPRES PO SCH (10:30)
[2016-09-06] MEDS: CENTRUM TABLET PO SCH (10:30)
[2016-09-06] MEDS: PROTONIX PO SCH (10:30)
[2016-09-06] MEDS: CARAFATE PO SCH ×3 (10:31→16:39)
[2016-09-06] MEDS: CALTRATE 600 PO SCH (10:31)
[2016-09-06] MEDS: DIOVAN PO SCH (10:31)
[2016-09-06] MEDS: LOVENOX SUBQ SCH (10:31)
[2016-09-06] MEDS: HYDROCHLOROTHIAZIDE PO SCH (10:31)
[2016-09-06] MEDS: CYMBALTA PO SCH (10:32)
[2016-09-06] MEDS: PATIENT'S OWN MED PO SCH (10:38)
[2016-09-06] MEDS: ATIVAN PO PRN (12:03)
[2016-09-06] MEDS: ZOFRAN IV PRN (13:33)
--- NOTE | 2016-09-06 16:50 | PROGRESS NOTE ---
DATE: 09/06/2016 PRESENT ILLNESS: Patient has a very badly infected left leg. I discussed this with the patient and I told her I do not think it can ever be cleared up with antibiotics to the point that it would be functional for a prolonged period of time. MEDICATIONS: The patient is on vancomycin and meropenem. This is day 2 of treatment. She previously had been treated at home. PHYSICAL EXAMINATION: Vital Signs: Temperature is 97.9, pulse 87, respirations 20, blood pressure 138/55. General: This is a chronically ill-appearing, elderly female. She is in no acute distress. Lungs: Clear to auscultation. Cardiovascular: Regular heart rate. Abdomen: Soft and nontender. Extremities: Patient has a PICC in her left arm. The site is not erythematous or swollen. The patient's left leg is very swollen. It has dark discoloration. There is no drainage coming from it. LAB AND X-RAY: The CBC for today showed a white count of 6100, hemoglobin 9.2, and platelet count 313,000. Creatinine is 0.7. GFR is greater than 60. Blood cultures thus far are sterile. ASSESSMENT AND PLAN: I had a long talk with the patient. Our plan now is to try to get her left leg in as good a shape as possible and then revisit Dr. Isaac to see if amputation is feasible and at what site would he have to amputate. I stressed to the patient that it is very important that she elevate her leg as much as possible. Her leg did quite well at home, but then she started keeping it down and not elevating it and then it got worse again. I plan to see the patient back in my office in 3 weeks and then we can decide whether the leg is as good as it is going to get and refer to Dr. Isaac for possible amputation or whether we think the leg can get better and in that case will go another 3 weeks and then make the followup appointment with Dr. Isaac. COMORBIDITIES: Include she is elderly. She has had multiple surgeries on the left leg. 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 It is constantly swollen even when she elevates it frequently. Lastly, the patient has gastroesophageal reflux disease and obesity. cc: Tal Martinez MD
[2016-09-06 17:52] VITALS: BP 134/49
[2016-09-07] MEDS ORDERED: VANCOMYCIN 1 GM/NS 1 GM/250 ML IVPB IV SCH (06:00)
[2016-09-07] MEDS ORDERED: VANCOMYCIN 750 MG in NS 150 ML IV SCH (09:00)
--- NOTE | 2016-09-07 13:50 | DISCHARGE SUMMARY ---
ADMISSION DATE: 09/04/2016 DISCHARGE DATE: 09/06/2016 DISCHARGE DIAGNOSES: 1. Left lower extremity cellulitis briefly. 2. Peripheral vascular disease. 3. 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 4. Hypertension. 5. Anemia. 6. Depression briefly. Please refer to complete H and P dictated on admission. CONSULTATIONS: 1. Dr. Ky Martinez. 2. Dr. Isaac. HOSPITAL COURSE: Briefly, this is a 75-year-old female, known to this service. She has had a recurrent left lower extremity cellulitis, for which she is getting antibiotic therapy per Dr. Martinez with vancomycin and Merrem, which I think she is still getting. She had been told previously that amputation may be the only true form of cure, but she did not want to pursue this. At this point, we are continuing IV antibiotics. She came back in because of persistent pain and swelling. She was maintained on her regular medications. She had a venous Doppler done, which showed no DVT. She had arterial flow studies, which showed some decreased flow at the popliteal artery on the left side, severe enough to cause claudication symptoms. Her GIULIANA on the right was 1.06 and on the left was 0.89. In any case, the patient decided she still wanted to pursue medical management, even though there was some risk of further decompensation. She still had some pain and swelling, and she had a very dark discoloration, which was felt to be associated with chronic venous stasis and not gangrene or otherwise. In any case, Dr. Martinez saw the patient and recommended to continue IV antibiotics. If she did not clinically improve, we would have to simply pursue amputation. At this point, based on her arterial studies, she will at least have top have an AKA and may even require further higher up amputation. The plan is to continue IV antibiotics for another 3 weeks with vancomycin and Merrem, and follow closely. DISCHARGE MEDICATIONS: She will be discharged on her regular medications, which are numerous, including Calcium 600 daily, Coreg 6.25 b.i.d., Celebrex 200 daily, Catapres 0.1 b.i.d., Voltaren gel, Bentyl, Cardizem CD 180 daily, Cymbalta 60 daily, Lasix 40 one to 2 p.r.n., which I would strongly consider just giving her some daily Lasix. I would recommend that, actually. [place] p.r.n., Xalatan, Ativan 1-2 p.r.n., Remeron 30 at bedtime, multivitamin daily, Mycostatin daily, Protonix 40 daily, Klor-Con 20 daily p.r.n., Mirapex 0.25 daily, selenium 200 daily, Carafate 1 g daily, timolol p.r.n., valsartan/hydrochlorothiazide, which she takes 320/25, but I think she takes that twice a day, Ambien 10 at bedtime. I think I am going to change her valsartan to 160 daily, and then put her on Lasix daily. TIME SPENT: Thirty-five minute discharge. cc: MD Tal Santos MD Lynn R. Buckner, MD Kathy J. Sparacino, MD
== END 2016-09-06 18:26 | disposition home health service (06) ==
LOC: ED 00:09 → SUATTDRO 07:15 → EDIPHOLD 07:15 → 3N 10:40
PROVIDERS: ATTEND Internal Medicine